=== PATIENT | male | born 1970 | race Caucasian/White ===

== ENCOUNTER 2017-01-16 17:26 | Emergency (ER) | payer MEDICAID ==
[2017-01-16] MEDS ORDERED: NORMAL SALINE 1,000 ML IV ONE (18:46)
[2017-01-16] MEDS ORDERED: HYDROmorphone HCL 1 MG/ML DISP.SYRIN IV ONE ×2 (18:46→19:24)
[2017-01-16] MEDS ORDERED: HYDROmorphone HCL 1 MG/ML DISP.SYRIN ONE ×2 (18:48→19:38)
[2017-01-16] MEDS ORDERED: ONDANSETRON HCL/PF 2 MG/ML VIAL ONE ×2 (18:50→20:08)
--- NOTE | 2017-01-16 18:51 | ERNOTE ---
Medical Problem HPI - General Chief Complaint: General Assessment Time Seen by Provider: 01/16/17 18:37 Source: patient Exam Limitations: no limitations - Immun/Allergies/Home Medications Immunizations: IMMUNIZATION HX Immunizations Up to Date Yes History of Influenza Vaccine Yes Hx Pneumococcal Vaccination Yes Allergies/Adverse Reactions: Allergies morphine Allergy (Severe, Verified 01/16/17 17:53) Anaphylaxis penicillin G Allergy (Severe, Verified 01/16/17 17:53) Anaphylaxis Home Medications: HOME MEDICATIONS Aspirin/Acetaminophen/Caffeine [Excedrin Extra Strength] 1 tab PO Q6H PRN [Last Taken Unknown] Metoprolol Tartrate [Lopressor] 100 mg PO BID 04/09/16 [Last Taken Unknown] oxyCODONE HCL/ACETAMINOPHEN [Percocet 5 MG/325 MG] 1 tab PO QID PRN #10 tablet 04/16/16 [Last Taken Unknown] LORazepam 1 mg PO DAILY 06/19/16 [Last Taken Unknown] Lisinopril 40 mg PO DAILY 06/19/16 [Last Taken Unknown] HYDROcodone/ACETAMINOPHEN [Hydrocodone-Apap 2.5 MG-108 MG/5 ML Solution] 10 ml PO Q4H PRN #200 udc 01/16/17 [Last Taken Unknown] traMADol HCL [Tramadol HCl] 50 mg PO DAILY 01/16/17 [Last Taken Unknown] - History of Present History Narrative: Patient has had a hyoid bone and tongue suspension by Dr Overton yesterday at [facility], was discharged this am at 11:00. Pain was controlled at that time but he had not been able to swallow anything. He took a nap and when he woke up around 16:00 his pain was out of control. He got a prescription for liquid dilaudid but it is not available at any pharmacy. At this point he is unable to swallow his saliva Review of Systems - Review of Systems Constitutional: Present: recent illness, malaise. Absent: fever ENT: Present: sore throat. Absent: ear pain, nose pain Respiratory: Absent: shortness of breath Cardiology: Absent: chest pain Gastrointestinal/Abdominal: Absent: vomiting, diarrhea, abdominal pain Genitourinary: Present: no symptoms reported Musculoskeletal: Absent: back pain Neurological: Present: headache. Absent: weakness, numbness - Patient's Past Medical History Patient History - Medical: Chronic Pain Patient History - Cardiac/Respiratory: Hypertension, Hyperlipidemia, Sleep Apnea Patient History - Cancer: No Hx of Cancer Patient History - Surgical Procedures: Appendectomy, Back Surgery, Other Patient History - Other: None - Social History Living Situations: home Abuse History: No History of abuse Psych History: No pertinent hx Does anyone smoke in the home?: No Smoking Status: Never smoker Alcohol Use: rarely Drug Use: none - Immunizations Immunizations Up to Date: Yes Hx Pneumococcal Vaccination: Yes History of Influenza Vaccine: Yes Physical Exam - Physical Exam General Appearance: Present: wd/wn, alert, moderate distress Head Exam: Present: other - scar under chin, no bleeding, no swelling,slightly tender Eye Exam: Normal inspection: bilateral, PERRL: bilateral Ears, Nose, Throat: Present: normal pharynx. Absent: pharyngeal erythema, pharyngeal swelling Neck: Present: normal inspection Respiratory: Present: no respiratory distress, normal breath sounds, no accessory muscle use, lungs clear Cardiovascular/Chest: Present: regular rate, rhythm, no murmur Neurological Exam: Present: alert, oriented, normal mood/affect Skin Exam: Present: normal color, warm/dry ED Progress - Vital Signs Patient's Vital Signs:: I have reviewed the patient's vital signs. Vital Signs: Vital Signs 01/16/17 17:41 Temperature 37.4 C Pulse Rate 123 H Respiratory 22 H Rate Blood Pressure 129/92 O2 Sat by Pulse 95 Oximetry - Progress/Reassessment Chief Complaint: General Assessment Progress Note-Subjective: 01/16/17 19:24 slightly better after dilaudid, pain still 5/10, attempted sip of cold water, not able to swallow 01/16/17 19:49 pain better after second dose of dilaudid, able to swallow few sips of water Departure - Departure Clinical Impression: Post-op pain Disposition: Home self-care Condition: Good Additional Instructions: make sure to take the pain medication every four hours and not let the pain get away from you, follow up with Dr Overton tomorrow as scheduled Referrals: Charlie Overton MD [[facility]esy Staff] - Prescriptions: HYDROcodone/ACETAMINOPHEN [Hydrocodone-Apap 2.5 MG-108 MG/5 ML Solution] 10 ml PO Q4H PRN #200 udc PRN Reason: Pain
[2017-01-16] MEDS ORDERED: ONDANSETRON HCL/PF 2 MG/ML VIAL IV ONE ×2 (18:56→20:07)
[2017-01-16 20:13] VITALS: BP 132/82
== END 2017-01-16 20:12 | disposition home or self-care (01) ==
LOC: ER 17:26
DX: G89.18 Other acute postprocedural pain (principal); I10 Essential (primary) hypertension
CPT/HCPCS: 96374; 96375; 99284; J2405

== ENCOUNTER 2017-01-17 09:27 | Emergency (ER) | payer MEDICAID ==
[2017-01-17 09:35] VITALS: BP 143/78
[2017-01-17] MEDS ORDERED: HYDROmorphone HCL 1 MG/ML DISP.SYRIN IM ONE (09:39)
[2017-01-17] MEDS ORDERED: HYDROmorphone HCL 1 MG/ML DISP.SYRIN ONE (09:41)
--- NOTE | 2017-01-17 09:42 | ERNOTE ---
ENT HPI Time Seen by Provider: 01/17/17 09:30 Source: patient Exam Limitations: no limitations - Immun/Allergies/Home Medications Immunizations: IMMUNIZATION HX Immunizations Up to Date Yes History of Influenza Vaccine Yes Hx Pneumococcal Vaccination Yes Allergies/Adverse Reactions: Allergies Allergy/AdvReac Type Severity Reaction Status Date / Time morphine Allergy Severe Anaphylaxis Verified 01/17/17 09:35 penicillin G Allergy Severe Anaphylaxis Verified 01/17/17 09:35 Home Medications: HOME MEDICATIONS Aspirin/Acetaminophen/Caffeine [Excedrin Extra Strength] 1 tab PO Q6H PRN [Last Taken Unknown] Metoprolol Tartrate [Lopressor] 100 mg PO BID 04/09/16 [Last Taken Unknown] oxyCODONE HCL/ACETAMINOPHEN [Percocet 5 MG/325 MG] 1 tab PO QID PRN #10 tablet 04/16/16 [Last Taken Unknown] LORazepam 1 mg PO DAILY 06/19/16 [Last Taken Unknown] Lisinopril 40 mg PO DAILY 06/19/16 [Last Taken Unknown] HYDROcodone/ACETAMINOPHEN [Hydrocodone-Apap 2.5 MG-108 MG/5 ML Solution] 10 ml PO Q4H PRN #200 udc 01/16/17 [Last Taken Unknown] traMADol HCL [Tramadol HCl] 50 mg PO DAILY 01/16/17 [Last Taken Unknown] - History of Present Illness Narrative: Patient had ENT surgery at [facility] two days ago (see note form yesterday). He was seen in the ER yesterday as his pain was not controlled as the liquid dilaudid that was prescribed was not available. He received IV fluids and pain medication, was able to swallow and was doing much better at discharge. He followed up with Dr Overton this morning, who was satisfied with his post op course. The patient did not take his pain medication with him and it has been over five hours since his last dose and the pain is getting worse again making it difficult to swallow, denies any other concerns Review of Systems - Review of Systems Constitutional: Present: recent illness. Absent: fever ENT: Present: sore throat. Absent: nose congestion, nasal drainage Respiratory: Absent: shortness of breath, cough Cardiology: Absent: chest pain Gastrointestinal/Abdominal: Absent: nausea, vomiting, diarrhea, abdominal pain Genitourinary: Present: no symptoms reported Musculoskeletal: Present: no symptoms reported Skin: Present: no symptoms reported Neurological: Present: no symptoms reported - Patient's Past Medical History Patient History - Medical: Chronic Pain Patient History - Cardiac/Respiratory: Hypertension, Hyperlipidemia, Sleep Apnea Patient History - Cancer: No Hx of Cancer Patient History - Surgical Procedures: Appendectomy, Back Surgery, Other Patient History - Other: None - Social History Living Situations: home Abuse History: No History of abuse Psych History: No pertinent hx Does anyone smoke in the home?: No Alcohol Use: rarely Drug Use: none - Immunizations Immunizations Up to Date: Yes Hx Pneumococcal Vaccination: Yes History of Influenza Vaccine: Yes Physical Exam - Physical Exam General Appearance: Present: wd/wn, alert, no apparent distress Head Exam: Present: other - well healing scar below chin, no bleeding, no ariway compromise Eye Exam: Normal inspection: bilateral Ears, Nose, Throat: Present: normal ENT inspection, normal pharynx Respiratory: Present: no respiratory distress, normal breath sounds, no accessory muscle use, lungs clear Cardiovascular/Chest: Present: regular rate, rhythm, no murmur Neurological Exam: Present: alert, oriented, normal mood/affect Skin Exam: Present: normal color, warm/dry ED Progress - Vital Signs Patient's Vital Signs:: I have reviewed the patient's vital signs. Vital Signs: Vital Signs 01/17/17 09:30 Temperature 37.1 C Pulse Rate 114 H Respiratory 12 Rate Blood Pressure 143/78 O2 Sat by Pulse 97 Oximetry - Progress/Reassessment Chief Complaint: Sore Throat Progress Note-Subjective: 01/17/17 09:[address] Overton, he did not send patient to ER, has no concern about post surgical course/healing, gave patient prescription for percocet. Patient needs to take his antibiotics Departure Clinical Impression: Post-op pain - Departure Disposition: Home self-care Condition: Good Additional Instructions: make sure to take your medication as scheduled and not let it get away from you, start taking your antibiotic after the pain medication has kicked in Referrals: Charlie Overton MD [[facility]] - (as scheduled)
== END 2017-01-17 09:48 | disposition home or self-care (01) ==
LOC: ER 09:27
DX: G89.18 Other acute postprocedural pain (principal); I10 Essential (primary) hypertension

== ENCOUNTER 2017-01-23 21:04 | Observation (INO) | payer MEDICAID ==
[2017-01-23] MEDS ORDERED: PROMETHAZINE HCL 25 MG in DEXTROSE 5 % IN WATER 50 ML IV ONE ×2 (21:16)
[2017-01-23] MEDS ORDERED: HYDROmorphone HCL 1 MG/ML DISP.SYRIN IV ONE ×2 (21:16→22:50)
[2017-01-23] MEDS ORDERED: NORMAL SALINE 1,000 ML IV ONE ×2 (21:16→23:13)
[2017-01-23] MEDS ORDERED: HYDROmorphone HCL 1 MG/ML DISP.SYRIN ONE ×2 (21:17→22:51)
--- NOTE | 2017-01-23 21:25 | ERNOTE ---
Medical Problem HPI - Narrative Date of Service: 01/23/17 - General Chief Complaint: General Assessment Time Seen by Provider: 01/23/17 21:10 Source: patient Exam Limitations: no limitations - Immun/Allergies/Home Medications Immunizations: IMMUNIZATION HX Immunizations Up to Date Yes History of Influenza Vaccine Yes Hx Pneumococcal Vaccination Yes Allergies/Adverse Reactions: Allergies morphine Allergy (Severe, Verified 01/23/17 21:11) Anaphylaxis penicillin G Allergy (Severe, Verified 01/23/17 21:11) Anaphylaxis Home Medications: HOME MEDICATIONS Metoprolol Tartrate [Lopressor] 100 mg PO BID 04/09/16 [Last Taken Unknown] LORazepam 1 mg PO DAILY 06/19/16 [Last Taken Unknown] Lisinopril 40 mg PO DAILY 06/19/16 [Last Taken Unknown] HYDROcodone/ACETAMINOPHEN [Hydrocodone-Apap 2.5 MG-108 MG/5 ML Solution] 10 ml PO Q4H PRN #200 udc 01/16/17 [Last Taken Unknown] traMADol HCL [Tramadol HCl] 50 mg PO DAILY 01/16/17 [Last Taken Unknown] Cephalexin Monohydrate [Keflex Suspension] 10 ml PO BID 01/23/17 [Last Taken Unknown] - History of Present History Narrative: Pt. comes in with c/o wound pain swelling, opening and drainage from surgical wound performed on the by Dr monson, Pt. had a tongue suspension and hyoid bone excision. Pt. was admitted at another hospital for incision infection and discharged 3 days ago but is still unable to swallow and has had intermittent fevers but has been taking his antibiotics. Pt. states that he is unable to manage his own secretions and his pain medications are not helping with the pain. Pt. states that pain is all over his skull. Review of Systems - Review of Systems Constitutional: Present: fever, chills, weakness, fatigue, malaise, weight loss EYE: Present: no symptoms reported ENT: Present: other - teeth and mandible pain unable to swallow Respiratory: Present: no symptoms reported. Absent: shortness of breath, cough , wheezing Cardiology: Present: no symptoms reported. Absent: chest pain, palpitations, edema Gastrointestinal/Abdominal: Present: no symptoms reported. Absent: nausea, vomiting, diarrhea Genitourinary: Present: no symptoms reported. Absent: frequency, pain, dysuria , decreased urinary output Musculoskeletal: Present: no symptoms reported. Absent: back pain, joint pain Skin: Present: other - incision dehiscence under chin Neurological: Present: no symptoms reported. Absent: anxiety, depressed, headache, dizziness/light-headedness, numbness, tingling Hematologic/Lymphatic: Present: no symptoms reported. Absent: easy bruising, easy bleeding All Other Systems: All systems neg except as marked - Patient's Past Medical History Patient History - Medical: Chronic Pain Patient History - Cardiac/Respiratory: Hypertension, Hyperlipidemia, Sleep Apnea Patient History - Cancer: No Hx of Cancer Patient History - Surgical Procedures: Appendectomy, Back Surgery, Other Patient History - Other: None - Social History Living Situations: home Abuse History: No History of abuse Psych History: No pertinent hx Does anyone smoke in the home?: No Smoking Status: Former smoker Alcohol Use: rarely Drug Use: none - Immunizations Immunizations Up to Date: Yes Hx Pneumococcal Vaccination: Yes History of Influenza Vaccine: Yes Physical Exam - Physical Exam General Appearance: Present: wd/wn, alert, no apparent distress Head Exam: Present: tenderness - on occiput and hyoid and mandible. Absent: no tenderness w palpation, active bleeding, contusions Eye Exam: Normal inspection: bilateral, PERRL: bilateral, EOMI: bilateral Ears, Nose, Throat: Present: dry mucous membranes, other - thrush on tongue. Absent: nasal congestion, sinus pain/drainage Neck: Present: other - tender frontal lateral and midline Respiratory: Present: no respiratory distress, normal breath sounds, no accessory muscle use, chest nontender, lungs clear Cardiovascular/Chest: Present: regular rate, rhythm, no murmur, normal peripheral pulses Gastrointestinal/Abdominal: Present: normal bowel sounds, nontender, nondistended, soft, no organomegaly Back Exam: Present: normal inspection Extremity Exam: Present: normal inspection Neurological Exam: Present: alert, oriented, normal mood/affect, no motor/ sensory deficits Skin Exam: Present: diaphoresis, pallor ED Progress - Results and Orders Patient's Lab Results:: I have reviewed the patient's lab results. - Vital Signs Patient's Vital Signs:: I have reviewed the patient's vital signs. Vital Signs: Vital Signs 01/23/17 21:07 Temperature 37.1 C Pulse Rate 126 H Respiratory 20 Rate Blood Pressure 144/91 O2 Sat by Pulse 99 Oximetry - CT/Ultrasound CT/Ultrasound Narrative: CT soft tissue neck without any bony abnormality but with enlarged lingual tonsil and Bilateral cervical adenopathy and diffuse subcutaneous stranding no focal fluid collection. Contrast was not discussed with CT techs for this study. - Progress/Reassessment Chief Complaint: General Assessment Progress:: Unchanged Departure - Departure Clinical Impression: Deep incisional surgical site infection Qualifiers: Encounter type: initial encounter Qualified Code(s): T81.4XXA - Infection following a procedure, initial encounter Dehiscence of external surgical wound Qualifiers: Encounter type: initial encounter Qualified Code(s): T81.31XA - Disruption of external operation (surgical) wound, not elsewhere classified, initial encounter Disposition: [facility] Condition: Fair
[2017-01-23 21:45] LABS: Hematocrit 47.6 % (42.0-52.0); Hemoglobin 16.9 gm/dL (13.5-18.0); Mean Cell Volume 89.8 fl (78-100); Mean Corpuscular Hemoglobin 31.9 pg (27-31); Mean Corpuscular Hgb Conc 35.5 g/dl (32-36); Mean Platelet Volume 10.2 fl (6.0-9.5); Neutrophil # 8.6 K/mm3 (1.3-6.0); Platelet Count 211 K/mm3 (150-450); Red Cell Distribution Width 11.9 % (11.5-14.0); White Blood Count 12.3 K/mm3 (4.0-10.5)
[2017-01-23 21:46] LABS: Anion Gap 18.4 mmol/L (6.8-13.8); BUN/Creatinine Ratio 21.4 (9.0-21.6); Bilirubin, Total 0.9 mg/dL (0.0-1.1); CRP 2.6 mg/dL (0.0-0.9); Ca. Corrected For Albumin 10.6 mg/dL (8.4-10.2); Calcium * 10.1 mg/dL (7.9-10.9); Potassium 3.4 mmol/L (3.4-4.6); Total Protein 8.4 gm/dL (6.2-8.2)
[2017-01-23] MEDS ORDERED: DEXAMETHASONE SOD PHOSPHATE 10 MG/ML VIAL ONE (23:13)
[2017-01-23] MEDS ORDERED: DEXAMETHASONE SOD PHOSPHATE 10 MG/ML VIAL IV SCH ×2 (23:15)
[2017-01-24] MEDS ORDERED: HYDROmorphone HCL 1 MG/ML DISP.SYRIN IV ONE (01:08)
[2017-01-24] MEDS: HYDROmorphone HCL 1 MG/ML DISP.SYRIN IV PRN ×2 (03:05→18:38)
--- NOTE | 2017-01-24 06:16 | HP ---
<Avila Caruso - Last Filed: 01/24/17 07:28> Chief Complaint - Chief Complaint Date of Service: 01/24/17 Time of Service: 01:50 Chief Complaint: post-op infection, swelling and pain History of Present Illness: 46 years old male adm to the hospital from ER with report of jaw pain, swelling at site of incision with drainage. Pt stated 01/15/17 he had a tongue suspension and hyoid bone excision secondary to obstructed sleep apnea. Surgery was performed by Dr monson in [place]. He was D/C home 01/17/17 with oral antibiotics and oxycodone for pain. Pt return to hospital due to pain, dehydration and fever. pt stated he was sent home with oral antibiotic, but because it was difficult for him to swallow he didn't take the pills. He was re -admitted at [facility] and discharge for pain control on Saturday. He was presented to the ER for pain control and incision care. Associated s/s fever, chills and excessive drainage from incision site.In ER he was initiated on Rocephin, ENT consulted and will see pt. - Patient's Past Medical History Patient History - Medical: Chronic Pain Patient History - Cardiac/Respiratory: Hypertension, Hyperlipidemia, Sleep Apnea Patient History - Cancer: No Hx of Cancer Patient History - Surgical Procedures: Appendectomy, Back Surgery, Other - cervical fusion Patient History - Other: None - Family History Mother Family History - Medical: Diabetes Type 1 Family History - Cancer: No pertinent family hx Father Family History - Medical: Diabetes Type 2 Family History - Cardiac/Respiratory: No pertinent hx Family History - Cancer: No pertinent family hx - Social History Living Situations: alone Abuse History: No History of abuse Psych History: Hx of Anxiety, Hx of Depression Does anyone smoke in the home?: No Smoking Status: Never smoker Have you smoked in the past 12 months: No Alcohol Use: rarely Drug Use: none - Immunizations Immunizations Up to Date: Yes Hx Pneumococcal Vaccination: Yes History of Influenza Vaccine: Yes Review Of Systems (GEN) - Review of Systems Generalized/Overall Review: Present: No Symptoms Reported EENTM: Present: Throat Pain Respiratory: Present: No Symptoms Reported Cardiac: Present: No Symptoms Reported Abdominal: Present: No Symptoms Reported Genitourinary: Present: No Symptoms Reported Musculoskeletal: Present: No Symptoms Reported Neurological: Present: No Symptoms Reported Skin: Present: Other - surgical site drainage Endocrine: Present: No Symptoms Reported Immunizations: IMMUNIZATION HX Immunizations Up to Date Yes History of Influenza Vaccine Yes Hx Pneumococcal Vaccination Yes Allergies/Adverse Reactions: Allergies Allergy/AdvReac Type Severity Reaction Status Date / Time morphine Allergy Severe Anaphylaxis Verified 01/23/17 21:11 penicillin G Allergy Severe Anaphylaxis Verified 01/23/17 21:11 Home Medications: HOME MEDICATIONS Metoprolol Tartrate [Lopressor] 100 mg PO BID 04/09/16 [Last Taken Unknown] HYDROcodone/ACETAMINOPHEN [Hydrocodone-Apap 2.5 MG-108 MG/5 ML Solution] 10 ml PO Q4H PRN #200 udc 01/16/17 [Last Taken Unknown] traMADol HCL [Tramadol HCl] 50 mg PO DAILY 01/16/17 [Last Taken Unknown] Cephalexin Monohydrate [Keflex Suspension] 10 ml PO BID 01/23/17 [Last Taken Unknown] LORazepam [Ativan] 1 mg PO DAILY PRN 01/24/17 [Last Taken Unknown] Lisinopril [Zestril] 40 mg PO DAILY 01/24/17 [Last Taken Unknown] Exam - Exam Vital Signs: Vital Signs - Last Taken Temp 36.8 C 01/24/17 03:43 Pulse 89 01/24/17 03:43 Resp 20 01/24/17 03:43 BP 133/83 01/24/17 03:43 Pulse Ox 97 01/24/17 03:43 Constitutional: Present: Alert, Oriented x3, Cooperative ENT Exam: Present: other Eye Exam: bilateral eye: normal inspection Neck: Present: full range of motion Back Exam: Present: normal inspection Breasts: Present: Exam deferred Respiratory: Present: chest non-tender Cardiovascular/Chest: Present: normal peripheral pulses, regular rate, rhythm Peripheral Pulses: dorsalis-pedis (R): 2+, dorsalis-pedis (L): 2+ Abdomen: Present: Normal bowel sounds, soft, nontender /Rectal: Present: Exam deferred Extremity: Present: normal range of motion Skin Exam: Present: normal color, warm/dry Neurologic: Present: oriented x 3 Appearance: Present: appropriate appearance Eye contact: Present: cooperative, good eye contact Thoughts: Present: normal thought pattern - s/p hyoid bone excision Diagnostic Studies: Laboratory Results WBC 12.3 K/mm3 (4.0-10.5) H 01/23/17 21:25 RBC 5.30 M/mm3 (4.7-6.0) 01/23/17 21: Hgb 16.9 gm/dL (13.5-18.0) 01/23/17 21: Hct 47.6 % (42.0-52.0) 01/23/17 21: MCV 89.8 fl (78-100) 01/23/17 21: MCH 31.9 pg (27-31) H 01/23/17 21: MCHC 35.5 g/dl (32-36) 01/23/17: RDW 11.9 % (11.5-14.0) 01/23/17: Plt Count 211 K/mm3 (150-450) 01/23/17 21: MPV 10.2 fl (6.0-9.5) H 01/23/17 21:25 Immature Gran % (Auto) 0.30 % (0.001-0.429) 01/23/17: Immature Gran # (Auto) 0.04 K/mm3 (0.000-0.0310) H 01/23/17 21:25 Neutrophils % 70.0 % (42-75.0) 01/23/17 21: Lymphocytes % 22.6 % (20-51) 01/23/17 21: Monocytes % 6.8 % (0.0-9) 01/23/17 21: Eosinophils % 0.2 % (0.0-3.0) 01/23/17: Basophils % 0.1 % (0.0-1.0) 01/23/17 21: Nucleated RBC % 0.0 k/mm3 (0-1) 01/23/17 21: Neutrophils # 8.6 K/mm3 (1.3-6.0) H 01/23/17 21: Lymphocytes # 2.8 k/mm3 (1.5-3.5) 01/23/17 21: Monocytes # 0.8 k/mm3 (0.0-1.0) 01/23/17: Eosinophils # 0.0 k/mm3 (0.0-0.7) 08/16/17 21:25 Absolute Basophils 0.0 k/mm3 (0.0-0.1) 01/23/17 21:25 ESR 43 mm/hr (0-10) H 01/23/17 21:25 Sodium 137 mmol/L (132-142) 01/23/17 21:25 Plasma Sodium 137 mmol/L (130-142) 01/23/17 21:25 Potassium 3.4 mmol/L (3.4-4.6) 01/23/17 21:25 Chloride 101 mmol/L (97-106) 01/23/17 21:25 Carbon Dioxide 21.0 mmol/L (24-32.6) L 01/23/17 21:25 Anion Gap 18.4 mmol/L (6.8-13.8) H 01/23/17 21:25 BUN 22 mg/dL (6-23) D 01/23/17 21:25 Creatinine 1.03 mg/dL (0.4-1.4) 01/23/17 21:25 Est GFR (Non-Af Amer) 83 mL/min (60-130) D 01/23/17 21:25 BUN/Creatinine Ratio 21.4 (9.0-21.6) 01/23/17 21:25 Random Glucose 113 mg/dL (70-110) H 01/23/17 21:25 Lactic Acid, Venous 1.1 mmol/L (0.4-1.9) 01/23/17 21:25 Calcium 10.1 mg/dL (7.9-10.9) 01/23/17 21:25 Calcium Adj for Albumin 10.6 mg/dL (8.4-10.2) H 01/23/17 21:25 Total Bilirubin 0.9 mg/dL (0.0-1.1) 01/23/17 21:25 AST 49 U/L (0-48) H 01/23/17 21:25 ALT 88 U/L (19-67) H 01/23/17 21:25 Alkaline Phosphatase 77 U/L (50-170) 01/23/17 21:25 C-Reactive Prot, Quant 2.6 mg/dL (0.0-0.9) H 01/23/17 21:25 Total Protein 8.4 gm/dL (6.2-8.2) H 01/23/17 21:25 Albumin 3.0 gm/dl (3.4-5.0) L 01/23/17 21:25 Assessment/Plan - Narrative Narrative: Incision site infection- S/P Hyoid bone excision 01/15/17 pt was non compliant with oral antibiotic upon discharge Continue with IV antibiotic and Dilaudid for pain control Change dressing as indicated ENT service following On adm WBC 12.3---->13.6, CRP 2.6, ESR 43 continue to monitor. Code status : Full DVT ppx: ambulate Time 30 minutes - Assessment/Plan (1) Deep incisional surgical site infection Problem: Acute QualifierTitle: Encounter type: initial encounter Qualified Code(s): T81.4XXA - Infection following a procedure, initial encounter <Rodolfo Morris - Last Filed: 01/24/17 08:39> Immunizations: IMMUNIZATION HX Immunizations Up to Date Yes History of Influenza Vaccine Yes Hx Pneumococcal Vaccination Yes Exam - Exam Vital Signs: Vital Signs - Last Taken Temp 36.1 C L 01/24/17 06:44 Pulse 87 01/24/17 06:44 Resp 20 01/24/17 06:44 BP 133/76 01/24/17 06:44 Pulse Ox 95 01/24/17 06:44 Diagnostic Studies: Abnormal Lab Results 01/24/17 01/24/17 Range/Units 06:25 06:25 WBC 13.6 H (4.0-10.5) K/mm3 MCH 32.2 H (27-31) pg MPV 10.2 H (6.0-9.5) fl Immature Gran # (Auto) 0.06 H (0.000-0.0310) K/mm3 Neutrophils % 91.6 H (42-75.0) % Lymphocytes % 5.8 L (20-51) % Neutrophils # 12.4 H (1.3-6.0) K/mm3 Lymphocytes # 0.8 L (1.5-3.5) k/mm3 Potassium 5.0 H D (3.4-4.6) mmol/L Random Glucose 123 H (70-110) mg/dL Calcium Adj for Albumin 10.8 H (8.4-10.2) mg/dL ALT 88 H (19-67) U/L Albumin 2.8 L (3.4-5.0) gm/dl Laboratory Results WBC 13.6 K/mm3 (4.0-10.5) H 01/24/17 06:25 RBC 5.09 M/mm3 (4.7-6.0) 01/24/17 06:25 Hgb 16.4 gm/dL (13.5-18.0) 01/24/17 06:25 Hct 47.3 % (42.0-52.0) 01/24/17 06:25 MCV 92.9 fl (78-100) 01/24/17 06:25 MCH 32.2 pg (27-31) H 01/24/17 06:25 MCHC 34.7 g/dl (32-36) 01/24/17 06:25 RDW 11.9 % (11.5-14.0) 01/24/17 06:25 Plt Count 212 K/mm3 (150-450) 01/24/17 06:25 MPV 10.2 fl (6.0-9.5) H 01/24/17 06:25 Immature Gran % (Auto) 0.40 % (0.001-0.429) 01/24/17 06:25 Immature Gran # (Auto) 0.06 K/mm3 (0.000-0.0310) H 01/24/17 06:25 Neutrophils % 91.6 % (42-75.0) H 01/24/17 06:25 Lymphocytes % 5.8 % (20-51) L 01/24/17 06:25 Monocytes % 2.1 % (0.0-9) 01/24/17 06:25 Eosinophils % 0.0 % (0.0-3.0) 01/24/17 06:25 Basophils % 0.1 % (0.0-1.0) 01/24/17 06:25 Nucleated RBC % 0.0 k/mm3 (0-1) 01/24/17 06:25 Neutrophils # 12.4 K/mm3 (1.3-6.0) H 01/24/17 06:25 Lymphocytes # 0.8 k/mm3 (1.5-3.5) L 01/24/17 06:25 Monocytes # 0.3 k/mm3 (0.0-1.0) 01/24/17 06:25 Eosinophils # 0.0 k/mm3 (0.0-0.7) 01/24/17 06:25 Absolute Basophils 0.0 k/mm3 (0.0-0.1) 01/24/17 06:25 ESR 43 mm/hr (0-10) H 01/23/17 21:25 Sodium 139 mmol/L (132-142) 01/24/17 06:25 Plasma Sodium 139 mmol/L (130-142) 01/24/17 06:25 Potassium 5.0 mmol/L (3.4-4.6) H D 01/24/17 06:25 Chloride 104 mmol/L (97-106) 01/24/17 06:25 Carbon Dioxide 27.2 mmol/L (24-32.6) 01/24/17 06:25 Anion Gap 12.8 mmol/L (6.8-13.8) 01/24/17 06:25 BUN 14 mg/dL (6-23) 01/24/17 06:25 Creatinine 0.91 mg/dL (0.4-1.4) 01/24/17 06:25 Est GFR (Non-Af Amer) 95 mL/min (60-130) 01/24/17 06:25 BUN/Creatinine Ratio 15.4 (9.0-21.6) 01/24/17 06:25 Random Glucose 123 mg/dL (70-110) H 01/24/17 06:25 Lactic Acid, Venous 1.1 mmol/L (0.4-1.9) 01/23/17 21:25 Calcium 10.2 mg/dL (7.9-10.9) 01/24/17 06:25 Calcium Adj for Albumin 10.8 mg/dL (8.4-10.2) H 01/24/17 06:25 Total Bilirubin 0.9 mg/dL (0.0-1.1) 01/24/17 06:25 AST 48 U/L (0-48) 01/24/17 06:25 ALT 88 U/L (19-67) H 01/24/17 06:25 Alkaline Phosphatase 81 U/L (50-170) 01/24/17 06:25 C-Reactive Prot, Quant 2.6 mg/dL (0.0-0.9) H 01/23/17 21:25 Total Protein 8.2 gm/dL (6.2-8.2) 01/24/17 06:25 Albumin 2.8 gm/dl (3.4-5.0) L 01/24/17 06:25 Assessment/Plan - Narrative Narrative: I have examined the patient, and agree with the plan, except after discussion with the surgeon, believe a change in antibiotics is appropriate. I directed all of our nurse practitioner hospitalist care for the patient.
[2017-01-24 06:28] LABS: Hematocrit 47.3 % (42.0-52.0); Hemoglobin 16.4 gm/dL (13.5-18.0); Mean Cell Volume 92.9 fl (78-100); Mean Corpuscular Hemoglobin 32.2 pg (27-31); Mean Corpuscular Hgb Conc 34.7 g/dl (32-36); Mean Platelet Volume 10.2 fl (6.0-9.5); Neutrophil # 12.4 K/mm3 (1.3-6.0); Neutrophil % 91.6 % (42-75.0); Platelet Count 212 K/mm3 (150-450); Red Blood Count 5.09 M/mm3 (4.7-6.0); Red Cell Distribution Width 11.9 % (11.5-14.0); White Blood Count 13.6 K/mm3 (4.0-10.5)
[2017-01-24 06:47] LABS: Albumin * 2.8 gm/dl (3.4-5.0); Anion Gap 12.8 mmol/L (6.8-13.8); BUN/Creatinine Ratio 15.4 (9.0-21.6); Bilirubin, Total 0.9 mg/dL (0.0-1.1); Ca. Corrected For Albumin 10.8 mg/dL (8.4-10.2); Calcium * 10.2 mg/dL (7.9-10.9); Carbon Dioxide 27.2 mmol/L (24-32.6); Total Protein 8.2 gm/dL (6.2-8.2)
[2017-01-24] MEDS ORDERED: oxyCODONE HCL 5 MG/5 ML UDC PO STA (07:25)
[2017-01-24] MEDS ORDERED: LORazepam 1 MG TABLET PO PRN (07:27)
[2017-01-24] MEDS: LEVOFLOXACIN 750 MG TABLET PO SCH ×2 (07:46→10:04)
[2017-01-24] MEDS ORDERED: LISINOPRIL 40 MG TABLET PO SCH (09:00)
[2017-01-24] MEDS: NYSTATIN 30 ML, diphenhydrAMINE HCL 75 MG, LIDOCAINE HCL 30 ML, MAG HYDROX/ALUMINUM HYD... PO SCH ×16 (09:38→21:09)
[2017-01-24] MEDS: METOPROLOL TARTRATE 100 MG TABLET PO SCH ×2 (09:40→21:09)
[2017-01-24] MEDS: DEXAMETHASONE SOD PHOSPHATE 4 MG/ML VIAL IV SCH ×2 (11:39→22:43)
[2017-01-24] MEDS: oxyCODONE HCL 5 MG/5 ML UDC PO PRN ×2 (15:52→21:14)
[2017-01-25] MEDS: oxyCODONE HCL 5 MG/5 ML UDC PO PRN ×2 (02:18→07:21)
[2017-01-25 06:17] LABS: Hematocrit 48.8 % (42.0-52.0); Hemoglobin 16.9 gm/dL (13.5-18.0); Mean Cell Volume 92.2 fl (78-100); Mean Corpuscular Hemoglobin 31.9 pg (27-31); Mean Corpuscular Hgb Conc 34.6 g/dl (32-36); Mean Platelet Volume 10.2 fl (6.0-9.5); Neutrophil # 9.8 K/mm3 (1.3-6.0); Neutrophil % 83.5 % (42-75.0); Platelet Count 248 K/mm3 (150-450); Red Blood Count 5.29 M/mm3 (4.7-6.0); Red Cell Distribution Width 11.9 % (11.5-14.0); White Blood Count 11.7 K/mm3 (4.0-10.5)
[2017-01-25 06:33] LABS: Anion Gap 17.1 mmol/L (6.8-13.8); BUN/Creatinine Ratio 17.8 (9.0-21.6); Calcium * 10.7 mg/dL (7.9-10.9); Carbon Dioxide 23.1 mmol/L (24-32.6); Estimated Creat Clear 82.5; Potassium 4.2 mmol/L (3.4-4.6)
[2017-01-25 06:41] VITALS: BP 101/55
--- NOTE | 2017-01-25 07:45 | DS ---
(1) Deep incisional surgical site infection Problem: Acute Qualifiers: Encounter type: subsequent encounter Qualified Code(s): T81.4XXD - Infection following a procedure, subsequent encounter (2) Dehiscence of external surgical wound Problem: Acute Qualifiers: Encounter type: subsequent encounter Qualified Code(s): T81.31XD - Disruption of external operation (surgical) wound, not elsewhere classified, subsequent encounter (3) Post-op pain Diagnosis(s): Uncontrolled Problem: Acute (4) Thrush, oral Problem: Acute Description of Stay: Wound opened and packed at bedside per Dr. Overton. Pain controlled in hospital. Multiple attempt failed as outpatient. Maintained as observation patient overnight to assure control. Antibiotics switched because of ongoing infection concern. Patient has now improved. Procedures Performed: see notes below - Opened wound and packed same per Dr. Chandler Discharge Disposition: Home self care Disposition: Home self-care Condition: Good Discharge Activity: Activity as tolerated [facility] Referrals: Eugenie Ferro, OPERATIONS GENERAL AGENT [Primary Care Provider] - Additional Patient Instructions (free text): Please make an appointment with Dr. Overton on discharge for Saturday morning in [place]. Eugenie Ferro next Saturday. Dressing changes and packing changes daily in [facility]. Prescriptions (Any new or edited meds): Levofloxacin [Levaquin] 750 mg PO DAILY@1100 #7 tablet Nystatin [Mycostatin 100 Mu/Ml Suspension] 30 ml PO QID #1200 ml oxyCODONE HCL [Roxicodone solution] 5 mg PO Q4H PRN #150 ml PRN Reason: Pain Complete Home Medications List: Complete Home Medication List: Metoprolol Tartrate [Lopressor] 100 mg PO BID 04/09/16 LORazepam [Ativan] 1 mg PO DAILY PRN 01/24/17 Lisinopril [Zestril] 40 mg PO DAILY 01/24/17 Levofloxacin [Levaquin] 750 mg PO DAILY@1100 #7 tablet 01/25/17 Nystatin [Mycostatin 100 Mu/Ml Suspension] 30 ml PO QID #1200 ml 01/25/17 oxyCODONE HCL [Roxicodone solution] 5 mg PO Q4H PRN #150 ml 01/25/17
== END 2017-01-25 10:14 | disposition home or self-care (01) ==
LOC: ER 21:04 → MS 22:57
PROVIDERS: ADMIT Nurse Practitioner; ATTEND Allergy & Immunology
DX: T81.4XXA Infection following a procedure, initial encounter (principal); T81.31XA Disruption of external operation (surgical) wound, not elsewhere classified, initial encounter; G89.18 Other acute postprocedural pain; I10 Essential (primary) hypertension; B37.0 Candidal stomatitis; G47.33 Obstructive sleep apnea (adult) (pediatric); E78.5 Hyperlipidemia, unspecified; L02.11 Cutaneous abscess of neck; Z68.37 Body mass index [BMI] 37.0-37.9, adult
CPT/HCPCS: 10180; 36415; 70490; 80048; 80053; 83605; 85025; 85652; 86140; 87040; 87070; 87077; 96365; 96367; 96375; 96376; 99285; G0378

== ENCOUNTER 2017-02-09 07:17 | Inpatient (IN) | payer MEDICAID ==
[2017-02-09] MEDS ORDERED: HYDROmorphone HCL 1 MG/ML DISP.SYRIN IV ONE ×2 (07:33→11:30)
[2017-02-09] MEDS ORDERED: LEVOFLOXACIN/D5W 750 MG/150 ML BAG IV ONE (07:33)
--- NOTE | 2017-02-09 07:41 | ERNOTE ---
<Billy Mcmanus - Last Filed: 02/09/17 07:36> Medical Problem HPI - Narrative Date of Service: 02/09/17 - General Chief Complaint: General Assessment Time Seen by Provider: 02/09/17 07:26 Source: patient, old records - Immun/Allergies/Home Medications Immunizations: IMMUNIZATION HX Immunizations Up to Date Yes History of Influenza Vaccine Yes Hx Pneumococcal Vaccination Yes Allergies/Adverse Reactions: Allergies morphine Allergy (Severe, Verified 02/09/17 07:23) Anaphylaxis penicillin G Allergy (Severe, Verified 02/09/17 07:23) Anaphylaxis Home Medications: HOME MEDICATIONS Metoprolol Tartrate [Lopressor] 100 mg PO BID 04/09/16 [Last Taken Unknown] Lisinopril [Zestril] 40 mg PO DAILY 01/24/17 [Last Taken Unknown] HYDROcodone/ACETAMINOPHEN [Hydrocodon-Acetamin 7.5-325/15] 15 ml PO 02/09/17 [ Last Taken Unknown] - History of Present History Narrative: This is a 47-year-old male who underwent a tongue hyoid surgery for obstructive sleep apnea by Dr. Monson 3 weeks ago. His postoperative course has been complicated. He had a episode of infection with that sounds like an abscess 2 weeks ago. He noted significant swelling in his neck as well as dehiscence of the wound and drainage of green material. The patient last saw Dr. Simmons on and was doing well. He ran out of his antibiotics on Saturday. He was on Levaquin. The surgeon had seen him and since he was no longer having symptoms it was felt to be safe to stop the antibiotics. The patient woke up this morning having a great deal of difficulty swallowing. He says that his pillow was covered in drool. He has a great deal of discomfort if he tries to swallow and says he is only able to swallow a tiny amount. He is not having any trouble breathing. He denies having fever. He says that he feels a significant amount of pressure in his cheeks up to his temporomandibular joint as well is the submandibular area. He says that the area there is quite hard. He says that this is new. He says it was not like this 24 hours ago. The patient denies any chest pain shortness of breath nausea vomiting diarrhea urinary symptoms gastrointestinal symptoms or any other complaints. His only symptoms involve the neck and swallowing. He denies any recent meat boluses which may have impacted this Review of Systems - Review of Systems Constitutional: Present: no symptoms reported EYE: Present: no symptoms reported ENT: Present: See HPI, sore throat, throat swelling Respiratory: Present: no symptoms reported Cardiology: Present: no symptoms reported Gastrointestinal/Abdominal: Present: no symptoms reported Genitourinary: Present: no symptoms reported Musculoskeletal: Present: no symptoms reported Skin: Present: no symptoms reported. Absent: rash Neurological: Present: no symptoms reported Endocrine: Present: no symptoms reported Hematologic/Lymphatic: Present: no symptoms reported, other - patient does not believe that these are swollen glands but he does have submandibular swelling Psych: Present: no symptoms reported All Other Systems: All systems neg except as marked - Patient's Past Medical History Patient History - Medical: Chronic Pain Patient History - Cardiac/Respiratory: Hypertension, Hyperlipidemia, Sleep Apnea Patient History - Cancer: No Hx of Cancer Patient History - Surgical Procedures: Appendectomy, Back Surgery, Other Patient History - Other: None - Family History Mother Family History - Medical: Diabetes Type 1 Family History - Cancer: No pertinent family hx Father Family History - Medical: Diabetes Type 2 Family History - Cardiac/Respiratory: No pertinent hx Family History - Cancer: No pertinent family hx - Social History Living Situations: alone Abuse History: No History of abuse Psych History: Hx of Anxiety, Hx of Depression Does anyone smoke in the home?: No Smoking Status: Never smoker Alcohol Use: rarely Drug Use: none - Immunizations Immunizations Up to Date: Yes Hx Pneumococcal Vaccination: Yes History of Influenza Vaccine: Yes Physical Exam - Physical Exam General Appearance: Present: wd/wn, alert, no apparent distress Head Exam: Present: normal inspection, no evidence of injury Eye Exam: Normal inspection: bilateral, PERRL: bilateral, EOMI: bilateral Ears, Nose, Throat: Present: other - the patient is unable to open his mouth completely due to discomfort in the neck. Unable to extend tongue out of mouth due to discomfort. Visualized portions of the oral pharynx are unremarkable. The uvula rises slightly to the right of the midline. The tonsillar pillars appear symmetric. The patient has significant swelling in the submandibular area to the angle of the jaw bilaterally. The patient has no definite fluctuance but induration of the skin and underlying tissue. Neck: Present: other - as described above in the ENT. Swelling noted. Well- healing wound. No definite calor or rubor. Respiratory: Present: no respiratory distress, normal breath sounds, no accessory muscle use, chest nontender, lungs clear Cardiovascular/Chest: Present: regular rate, rhythm, no murmur, normal peripheral pulses Gastrointestinal/Abdominal: Present: normal bowel sounds, nontender, nondistended, soft, no organomegaly Back Exam: Present: normal inspection, normal range of motion, no CVA tenderness , no vertebral tenderness Extremity Exam: Present: normal inspection, non-tender, no edema Neurological Exam: Present: alert, oriented, normal mood/affect, no motor/ sensory deficits Skin Exam: Present: normal color, warm/dry Lymphatic Exam: Present: no adenopathy ED Progress - Vital Signs Vital Signs: Vital Signs 02/09/17 07:20 Temperature 36.3 C L Pulse Rate 104 H Respiratory 14 Rate Blood Pressure 150/90 O2 Sat by Pulse 96 Oximetry - Progress/Reassessment Chief Complaint: General Assessment - Transfer of Care Physician Sign Out: Billy Mcmanus Brief History: 47-year-old gentleman with postoperative complications after hyoid surgery for obstructive sleep apnea. Had infection 2 weeks ago. I suspect infection has recurred. Has CAT scan pending. I have talked to the ENT physician. Antibiotics and pain medicines have been ordered. Receiving Physician: Prince Shah Pending Results: CT/MRI results, Labs, Pain-control, Physician/consult arrival Expected Disposition: Admit Departure - Departure Clinical Impression: Deep incisional surgical site infection Disposition: [facility] Condition: Serious Referrals: Eugenie Ferro, REFINING EQUIPMENT OPERATOR [Primary Care Provider] - <Ike Ross - Last Filed: 02/09/17 09:26> Medical Problem HPI - Immun/Allergies/Home Medications Immunizations: IMMUNIZATION HX Immunizations Up to Date Yes History of Influenza Vaccine Yes Hx Pneumococcal Vaccination Yes ED Progress - Results and Orders Patient's Lab Results:: I have reviewed the patient's lab results. - Vital Signs Patient's Vital Signs:: I have reviewed the patient's vital signs. Vital Signs: Vital Signs 02/09/17 02/09/17 07:20 09:09 Temperature 36.3 C L Pulse Rate 104 H 97 Respiratory 14 14 Rate Blood Pressure 150/90 163/74 O2 Sat by Pulse 96 97 Oximetry - CT/Ultrasound CT/Ultrasound Narrative: ct reveals 2-3 developing absceess below tonque - Progress/Reassessment Progress:: Unchanged Plan - Plan Plan: case dicussed with dr monson who will take patient to surgery this afternoon, dr butler contacted [facility] patient for admission
[2017-02-09] MEDS ORDERED: HYDROmorphone HCL 1 MG/ML DISP.SYRIN ONE (07:43)
[2017-02-09] MEDS ORDERED: NORMAL SALINE 1,000 ML IV PRN (07:55)
[2017-02-09 07:59] LABS: Hematocrit 42.8 % (42.0-52.0); Hemoglobin 15.2 gm/dL (13.5-18.0); Mean Cell Volume 90.3 fl (78-100); Mean Corpuscular Hemoglobin 32.1 pg (27-31); Mean Corpuscular Hgb Conc 35.5 g/dl (32-36); Mean Platelet Volume 10.3 fl (6.0-9.5); Neutrophil # 3.3 K/mm3 (1.3-6.0); Neutrophil % 53.7 % (42-75.0); Platelet Count 171 K/mm3 (150-450); Red Blood Count 4.74 M/mm3 (4.7-6.0); Red Cell Distribution Width 12.4 % (11.5-14.0); White Blood Count 6.2 K/mm3 (4.0-10.5)
[2017-02-09 08:07] LABS: Prothrombin Time (Patient) 9.6 Seconds (9.4-11.4)
[2017-02-09 08:10] LABS: Calcium * 9.2 mg/dL (7.9-10.9); Carbon Dioxide 24.6 mmol/L (24-32.6); Estimated Creat Clear 109.9; Potassium 3.6 mmol/L (3.4-4.6)
[2017-02-09 08:12] LABS: INR 0.92 INR (0.90-1.10)
[2017-02-09] MEDS ORDERED: DEXAMETHASONE SOD PHOSPHATE 10 MG/ML VIAL IV ONE (09:14)
[2017-02-09] MEDS ORDERED: DEXAMETHASONE SOD PHOSPHATE 10 MG/ML VIAL ONE ×2 (09:29→19:43)
[2017-02-09] MEDS ORDERED: CLINDAMYCIN PHOSPHATE 600 MG in DEXTROSE 5 % IN WATER 100 ML IV ONE ×2 (11:00)
--- NOTE | 2017-02-09 11:56 | HP ---
Chief Complaint - Chief Complaint Date of Service: 02/09/17 Time of Service: 11:42 Chief Complaint: Neck abscess History of Present Illness: Dirk is a 47 yo male that presents to the [facility] ER this Am with worsening neck swelling and pain. He underwent a hyoid and tongue base suspension surgery for obstructive sleep apnea by Dr. Overton 3 weeks ago. His postoperative course was complicated by development of an abscess 2 weeks ago. He had incision, drainage, and packing of abscess and treated with Levaquin. He awoke this AM with increased neck swelling and pain. He reports otherwise no other medical concerns. His past medical history is significant for obstructive sleep apnea and hypertension. He does not smoke and only drinks socially. He denies chest pain. Evaluation in the ER showed worsening swelling with development of 3 new abscesses. ENT was contacted and recommended steroids, IV antibiotics, and surgery for drainage today. - Patient's Past Medical History Patient History - Medical: Chronic Pain Patient History - Cardiac/Respiratory: Hypertension, Hyperlipidemia, Sleep Apnea Patient History - Cancer: No Hx of Cancer Patient History - Surgical Procedures: Appendectomy, Other - C3-4 Spinal Fusion ; Hyoid and Tongue base suspension for GRANT Patient History - Other: None - Family History Mother Family History - Medical: Diabetes Type 1 Family History - Cancer: No pertinent family hx Father Family History - Medical: Diabetes Type 2 Family History - Cardiac/Respiratory: No pertinent hx Family History - Cancer: No pertinent family hx - Social History Living Situations: home Abuse History: No History of abuse Psych History: Hx of Anxiety, Hx of Depression Does anyone smoke in the home?: No Smoking Status: Never smoker Have you smoked in the past 12 months: No Alcohol Use: rarely Drug Use: none - Immunizations Immunizations Up to Date: Yes Hx Pneumococcal Vaccination: Yes History of Influenza Vaccine: Yes Review Of Systems (GEN) - Review of Systems Generalized/Overall Review: Present: Chills. Absent: Weakness, Fever EENTM: Present: Throat Pain, Throat Swelling, Mouth Pain Respiratory: Present: No Symptoms Reported Cardiac: Present: No Symptoms Reported Abdominal: Present: Nausea. Absent: Vomiting Genitourinary: Present: No Symptoms Reported Musculoskeletal: Present: No Symptoms Reported Neurological: Present: No Symptoms Reported Skin: Present: No Symptoms Reported Endocrine: Present: No Symptoms Reported Allergies/Adverse Reactions: Allergies Allergy/AdvReac Type Severity Reaction Status Date / Time morphine Allergy Severe Anaphylaxis Verified 02/09/17 07:23 penicillin G Allergy Severe Anaphylaxis Verified 02/09/17 07:23 Home Medications: HOME MEDICATIONS Metoprolol Tartrate [Lopressor] 100 mg PO BID 04/09/16 [Last Taken Unknown] Lisinopril [Zestril] 40 mg PO DAILY 01/24/17 [Last Taken Unknown] HYDROcodone/ACETAMINOPHEN [Hydrocodon-Acetamin 7.5-325/15] 15 ml PO 02/09/17 [ Last Taken Unknown] Exam - Exam Vital Signs: Vital Signs - Last Taken Temp 36.4 C L 02/09/17 09:51 Pulse 98 02/09/17 09:51 Resp 16 02/09/17 09:51 BP 142/94 02/09/17 09:51 Pulse Ox 93 02/09/17 09:51 Constitutional: Present: Alert, Oriented x3, Cooperative, No distress ENT Exam: Present: hearing grossly normal, other - Neck diffusely swollen, moreso submental, tender to palpation. Able to talk and open mouth Eye Exam: bilateral eye: normal inspection Respiratory: Present: chest non-tender, lungs clear, normal breath sounds, no respiratory distress Cardiovascular/Chest: Present: regular rate, rhythm, no murmur Abdomen: Present: Normal bowel sounds, soft, nontender, nondistended, no rebound tenderness, no hepatospenomegaly Skin Exam: Present: normal color, warm/dry, no cyanosis, other - Packing removed , no active drainage Appearance: Present: appropriate appearance, appropriate insight Diagnostic Studies: Laboratory Results WBC 6.2 K/mm3 (4.0-10.5) 02/09/17 07:48 RBC 4.74 M/mm3 (4.7-6.0) 02/09/17 07:48 Hgb 15.2 gm/dL (13.5-18.0) 02/09/17 07:48 Hct 42.8 % (42.0-52.0) 02/09/17 07:48 MCV 90.3 fl (78-100) 02/09/17 07:48 MCH 32.1 pg (27-31) H 02/09/17 07:48 MCHC 35.5 g/dl (32-36) 02/09/17 07:48 RDW 12.4 % (11.5-14.0) 02/09/17 07:48 Plt Count 171 K/mm3 (150-450) 02/09/17 07:48 MPV 10.3 fl (6.0-9.5) H 02/09/17 07:48 Immature Gran % (Auto) 0.30 % (0.001-0.429) 02/09/17 07:48 Immature Gran # (Auto) 0.02 K/mm3 (0.000-0.0310) 02/09/17 07:48 Neutrophils % 53.7 % (42-75.0) 02/09/17 07:48 Lymphocytes % 35.3 % (20-51) 02/09/17 07:48 Monocytes % 8.2 % (0.0-9) 02/09/17 07:48 Eosinophils % 2.3 % (0.0-3.0) 02/09/17 07:48 Basophils % 0.2 % (0.0-1.0) 02/09/17 07:48 Nucleated RBC % 0.0 k/mm3 (0-1) 02/09/17 07:48 Neutrophils # 3.3 K/mm3 (1.3-6.0) 02/09/17 07:48 Lymphocytes # 2.2 k/mm3 (1.5-3.5) 02/09/17 07:48 Monocytes # 0.5 k/mm3 (0.0-1.0) 02/09/17 07:48 Eosinophils # 0.1 k/mm3 (0.0-0.7) 02/09/17 07:48 Absolute Basophils 0.0 k/mm3 (0.0-0.1) 02/09/17 07:48 PT 9.6 Seconds (9.4-11.4) 02/09/17 07:48 INR (Anticoag Therapy) 0.92 INR (0.90-1.10) 02/09/17 07:48 Sodium 139 mmol/L (132-142) 02/09/17 07:48 Plasma Sodium 139 mmol/L (130-142) 02/09/17 07:48 Potassium 3.6 mmol/L (3.4-4.6) 02/09/17 07:48 Chloride 103 mmol/L (97-106) 02/09/17 07:48 Carbon Dioxide 24.6 mmol/L (24-32.6) 02/09/17 07:48 Anion Gap 15.0 mmol/L (6.8-13.8) H 02/09/17 07:48 BUN 6 mg/dL (6-23) D 02/09/17 07:48 Creatinine 0.75 mg/dL (0.4-1.4) 02/09/17 07:48 Est GFR (Non-Af Amer) 119 mL/min (60-130) D 02/09/17 07:48 BUN/Creatinine Ratio 8.0 (9.0-21.6) L 02/09/17 07:48 Random Glucose 110 mg/dL (70-110) 02/09/17 07:48 Lactic Acid, Venous 1.3 mmol/L (0.4-1.9) 02/09/17 07:45 Calcium 9.2 mg/dL (7.9-10.9) 02/09/17 07:48 Assessment/Plan - Narrative Narrative: Dirk is a 47yo Male with: 1) Neck abscess and infection of postsurgical site following hyoid and tongue base suspension for obstructive sleep apnea. ENT was contacted from the ER. Will consult them for surgical drainage today. He will be continued on IV clindamycin, IV pain control, IV steroids, and IV nausea medication. He is medically cleared for surgery. Cardiovascular risk assessment is <0.4% risk for cardiac event with surgery. He is NPO and has not ate or drink since 1600 yesterday per his reports. 2) Hypertension - Controlled 3) Obstructive Sleep Apnea - Recently underwent hyoid and tongue base suspension for treatment. He reports improved sleep and snoring since surgery. 4) Medical Clearance - Cleared for surgery. - Assessment/Plan (1) Neck abscess Problem: Acute (2) Deep incisional surgical site infection Problem: Acute Qualifiers: (3) Hypertension Problem: Acute
[2017-02-09] MEDS: ONDANSETRON HCL/PF 2 MG/ML VIAL IV PRN ×2 (12:38→19:22)
[2017-02-09] MEDS: KETOROLAC TROMETHAMINE 30 MG/ML VIAL IV SCH ×2 (12:38→18:43)
[2017-02-09] MEDS: HYDROmorphone HCL 1 MG/ML DISP.SYRIN IV PRN ×4 (13:52→21:43)
[2017-02-09] MEDS ORDERED: BACITRACIN 50,000 UNITS VIAL IR ONE (15:25)
[2017-02-09] MEDS ORDERED: LIDOCAINE HCL/EPINEPHRINE 30 ML VIAL IJ ONE (15:25)
[2017-02-09] MEDS ORDERED: RINGER'S SOLUTION,LACTATED 1,000 ML IV ONE (17:00)
[2017-02-09] MEDS: LEVOFLOXACIN/D5W 750 MG/150 ML BAG IV SCH (19:22)
[2017-02-09] MEDS: DEXAMETHASONE SOD PHOSPHATE 10 MG/ML VIAL IV SCH (20:59)
[2017-02-09] MEDS: CLINDAMYCIN PHOSPHATE 900 MG in DEXTROSE 5 % IN WATER 100 ML IV SCH ×2 (20:59)
[2017-02-10] MEDS: KETOROLAC TROMETHAMINE 30 MG/ML VIAL IV SCH ×5 (00:15→23:05)
[2017-02-10] MEDS: HYDROmorphone HCL 1 MG/ML DISP.SYRIN IV PRN ×9 (00:23→23:04)
[2017-02-10] MEDS: CLINDAMYCIN PHOSPHATE 900 MG in DEXTROSE 5 % IN WATER 100 ML IV SCH ×6 (02:44→19:19)
[2017-02-10] MEDS: ONDANSETRON HCL/PF 2 MG/ML VIAL IV PRN ×5 (02:44→23:05)
[2017-02-10] MEDS ORDERED: DEXTROSE 5%-0.5 NORMAL SALINE 1,000 ML IV PRN (04:16)
[2017-02-10] MEDS: DEXAMETHASONE SOD PHOSPHATE 10 MG/ML VIAL IV SCH (07:51)
[2017-02-10] MEDS ORDERED: HYDROcodone/ACETAMINOPHEN 5 ML UDC PO PRN (09:52)
--- NOTE | 2017-02-10 09:56 | PN ---
Subjective - Date and Time Seen Date: 02/10/17 Time: 09:49 Subjective Narrative: Pt. feels better this am, less pain in teeth and feels less swollen. Still doesn't feel great, but is better. States received dose of decadron which he thinks caused him to flush and feel nauseated with vomiting. Otherwise no complaints. Objective - Review of Systems Generalized/Overall Review: Reports: Malaise. Denies: Chills, Fever EENTM: Reports: No Symptoms Reported Respiratory: Reports: No Symptoms Reported Cardiac: Reports: No Symptoms Reported Abdominal: Reports: Nausea, Vomiting Genitourinary Symptoms: Reports: No Symptoms Reported Musculoskeletal Complaints: Reports: No Symptoms Reported Neurological: Reports: No Symptoms Reported Skin: Reports: No Symptoms Reported Endocrine: Reports: No Symptoms Reported - Vitals Vitals: Last Vital Signs Temp 36.6 C 02/10/17 07:42 Pulse 98 02/10/17 07:42 Resp 18 02/10/17 07:42 BP 137/72 02/10/17 07:42 Pulse Ox 97 02/10/17 07:42 - Exam Constitutional: Present: Alert, Oriented x3, Cooperative, Mild distress, Obese ENT Exam: Present: hearing grossly normal Neck: Present: supple Respiratory: Present: lungs clear, normal breath sounds, no respiratory distress Cardiovascular/Chest: Present: regular rate, rhythm, no murmur Abdomen: Present: Normal bowel sounds, soft, nontender, nondistended Skin Exam: Present: normal color Lymphatic: Present: other - cervical LAD Neurologic: Present: normal mood/affect, oriented x 3 Appearance: Present: appropriate appearance, appropriate insight, neat Eye contact: Present: cooperative, good eye contact, normal speech Thoughts: Present: normal thought pattern, no apparent hallucination Assessment/Plan - Problems/Diagnosis (1) Deep incisional surgical site infection Problem: Acute Qualifiers: (2) Hypertension Problem: Chronic Qualifiers: Hypertension type: essential hypertension Qualified Code(s): I10 - Essential (primary) hypertension Narrative: will resume lisinopril and metoprolol, but monitor BP's. hold meds if SBP < 110 or HR < 50. (3) Neck abscess Problem: Acute Narrative: post op. appears to be better. continue abx IV for now. (4) Discharge planning issues Problem: Acute Narrative: hopefully can discharge home in the am on oral abx, but should wait until cultures are back in order to mario abx tx.
[2017-02-10] MEDS: METOPROLOL TARTRATE 100 MG TABLET PO SCH ×2 (10:27→20:00)
[2017-02-10] MEDS: LISINOPRIL 40 MG TABLET PO SCH (10:28)
[2017-02-10] MEDS: LEVOFLOXACIN/D5W 750 MG/150 ML BAG IV SCH (17:30)
[2017-02-10] MEDS ORDERED: SENNOSIDES/DOCUSATE SODIUM 1 TAB TABLET PO SCH ×2 (18:30→21:00)
[2017-02-11] MEDS: CLINDAMYCIN PHOSPHATE 900 MG in DEXTROSE 5 % IN WATER 100 ML IV SCH ×2 (02:53)
[2017-02-11] MEDS: HYDROmorphone HCL 1 MG/ML DISP.SYRIN IV PRN (02:53)
[2017-02-11] MEDS: KETOROLAC TROMETHAMINE 30 MG/ML VIAL IV SCH (05:22)
[2017-02-11 06:46] VITALS: BP 104/57
[2017-02-11] MEDS ORDERED: LEVOFLOXACIN 750 MG TABLET PO SCH (07:40)
[2017-02-11] MEDS: LISINOPRIL 40 MG TABLET PO SCH (08:17)
[2017-02-11] MEDS: METOPROLOL TARTRATE 100 MG TABLET PO SCH (08:17)
--- NOTE | 2017-02-11 09:14 | DS ---
(1) Deep incisional surgical site infection Problem: Acute Qualifiers: (2) Hypertension Problem: Chronic Qualifiers: Hypertension type: essential hypertension Qualified Code(s): I10 - Essential (primary) hypertension (3) Neck abscess Problem: Acute (4) Discharge planning issues Problem: Acute Description of Stay: pt. admitted and placed on IV abx for wound infection and abscesses. Pt. taken to OR by Dr. Overton who debrided the wound and drained the abscess. Drains were in place, though one came out and was removed by me prior to discharge. Pt. was doing well, felt much better and asked to go home understanding that cultures were not back yet and that his abx tx may need to be changed from the levaquin he'll be discharged on. Procedures Performed: see notes below List Procedures: I&D, debridement of wound and drains placed. See op note for more specific details. Discharge Disposition: Home self care Disposition: Home self-care Condition: Fair Discharge Activity: Activity as tolerated Discharge Diet: [facility] soft Referrals: Eugenie Ferro CNP [Primary Care Provider] - One Week Charlie Overton MD [Courtesy Staff] - (per him) Prescriptions (Any new or edited meds): Clindamycin HCl [Cleocin HCl] 600 mg PO TID #48 capsule HYDROcodone/ACETAMINOPHEN [Hydrocodon-Acetamin 7.5-325/15] 7.5 ml PO Q6H PRN # 300 solution PRN Reason: Pain Levofloxacin [Levaquin] 750 mg PO DAILY@1100 #8 tablet Complete Home Medications List: Complete Home Medication List: Metoprolol Tartrate [Lopressor] 100 mg PO BID 04/09/16 Lisinopril [Zestril] 40 mg PO DAILY 01/24/17 Clindamycin HCl [Cleocin HCl] 600 mg PO TID #48 capsule 02/11/17 HYDROcodone/ACETAMINOPHEN [Hydrocodon-Acetamin 7.5-325/15] 7.5 ml PO Q6H PRN # 300 solution 02/11/17 Levofloxacin [Levaquin] 750 mg PO DAILY@1100 #8 tablet 02/11/17 Sennosides/Docusate Sodium [Senokot-S] 2 tab PO HS tablet 02/11/17
== END 2017-02-11 10:00 | disposition home or self-care (01) | DRG 863 ==
LOC: ER 07:17 → MS 09:25
PROVIDERS: ADMIT Family Medicine; ATTEND Family Medicine
PROC: 0J9400Z Drainage of Right Neck Subcutaneous Tissue and Fascia with Drainage Device, Open Approach (ICD-10-PCS; principal; 2017-02-09 17:00)
DX: T81.4XXA Infection following a procedure, initial encounter (principal); L02.11 Cutaneous abscess of neck; Y83.9 Surgical procedure, unspecified as the cause of abnormal reaction of the patient, or of later complication, without mention of misadventure at the time of the procedure; I10 Essential (primary) hypertension; E78.5 Hyperlipidemia, unspecified
CPT/HCPCS: 21501; 36415; 70491; 80048; 83605; 85025; 85610; 87040; 87070; 87077; 96365; 96375; 99285; J2405

== ENCOUNTER 2017-02-25 10:34 | Emergency (ER) | payer MEDICAID ==
[2017-02-25] MEDS ORDERED: ONDANSETRON 4 MG TAB.RAPDIS PO ONE (10:50)
[2017-02-25] MEDS ORDERED: ONDANSETRON 4 MG TAB.RAPDIS ONE (10:52)
[2017-02-25] MEDS ORDERED: HYDROmorphone HCL 1 MG/ML DISP.SYRIN IV ONE ×2 (11:11→12:11)
--- NOTE | 2017-02-25 11:11 | ERNOTE ---
Integumentary HPI - Narrative Date of Service: 02/25/17 - General Presenting Symptoms: abscess Time Seen by Provider: 02/25/17 11:01 Source: patient, RN notes reviewed, old records Exam Limitations: no limitations - Immun/Allergies/Home Medications Immunizations: IMMUNIZATION HX Immunizations Up to Date Yes History of Influenza Vaccine Yes Hx Pneumococcal Vaccination No Allergies/Adverse Reactions: Allergies Allergy/AdvReac Type Severity Reaction Status Date / Time morphine Allergy Severe Anaphylaxis Verified 02/25/17 10:50 penicillin G Allergy Severe Anaphylaxis Verified 02/25/17 10:50 Home Medications: HOME MEDICATIONS Metoprolol Tartrate [Lopressor] 100 mg PO BID 04/09/16 [Last Taken Unknown] Lisinopril [Zestril] 40 mg PO DAILY 01/24/17 [Last Taken Unknown] Clindamycin HCl [Cleocin HCl] 600 mg PO TID #48 capsule 02/11/17 [Last Taken Unknown] HYDROcodone/ACETAMINOPHEN [Hydrocodon-Acetamin 7.5-325/15] 7.5 ml PO Q6H PRN # 300 solution 02/11/17 [Last Taken Unknown] Levofloxacin [Levaquin] 750 mg PO DAILY@1100 #8 tablet 02/11/17 [Last Taken Unknown] Sennosides/Docusate Sodium [Senokot-S] 2 tab PO HS tablet 02/11/17 [Last Taken Unknown] - History of Present Illness Narrative: 47 y/o male presents to the ED for a neck abscess. He underwent a sleep apnea surgery approximately 6 weeks ago. He was admitted here for an incisional abscess on 02/09. The abscess was surgically debrided by Dr. Overton. The patient was discharged on 02/11. He went home on Levaquin, which he has finished, and clindamycin that he is still taking. He was also packing the wound daily until today when he could not do so d/t pain. Two days ago, he began having increased pain and swelling around the incision on his anterior neck. This has continued to worsen, and today a large amount of purulent drainage came out of the wound. He also reports that he began vomiting last night, and that he developed a rash on his trunk and arms 2 days ago. He reports pain and pressure in his lower teeth and jaw, and feeling like he is unable to swallow his own saliva. He is noted to be swallowing and not having to spit out his secretions. Date (Duration): 02/23/17 Location: Reports: neck Quality: Reports: painful Severity: severe Prior Treatment: Reports: recently seen, treated by physician, recently hospitalized, currently on antibiotics Review of Systems - Review of Systems Constitutional: Present: recent illness, chills, malaise EYE: Present: no symptoms reported ENT: Present: ear pain, throat swelling. Absent: nose congestion, sore throat Respiratory: Present: shortness of breath. Absent: cough Cardiology: Absent: chest pain, syncope Gastrointestinal/Abdominal: Present: nausea, vomiting. Absent: abdominal pain Genitourinary: Present: no symptoms reported Musculoskeletal: Present: neck pain. Absent: joint pain Skin: Present: rash, lesions, lumps Neurological: Present: headache. Absent: dizziness/light-headedness Endocrine: Present: no symptoms reported Hematologic/Lymphatic: Absent: easy bruising, easy bleeding Psych: Present: no symptoms reported - Patient's Past Medical History Patient History - Medical: Chronic Pain Patient History - Cardiac/Respiratory: Hypertension, Hyperlipidemia, Sleep Apnea Patient History - Cancer: No Hx of Cancer Patient History - Surgical Procedures: Appendectomy, Other, ENT Patient History - Other: None - Family History Mother Family History - Medical: Diabetes Type 1 Family History - Cancer: No pertinent family hx Father Family History - Medical: Diabetes Type 2 Family History - Cardiac/Respiratory: No pertinent hx Family History - Cancer: No pertinent family hx - Social History Living Situations: other Abuse History: No History of abuse Psych History: Hx of Anxiety, Hx of Depression Does anyone smoke in the home?: No Smoking Status: Never smoker Have you smoked in the past 12 months: No Do you dip or chew tobacco: No Alcohol Use: rarely Drug Use: none - Immunizations Immunizations Up to Date: Yes Hx Pneumococcal Vaccination: No History of Influenza Vaccine: Yes Physical Exam - Physical Exam General Appearance: Present: alert, moderate distress, obese Head Exam: Present: normal inspection Eye Exam: Normal inspection: bilateral Ears, Nose, Throat: Absent: pharyngeal erythema, pharyngeal swelling, dry mucous membranes Neck: Present: limited range of motion, other - Severe tenderness, swelling and induration surrounding upper anterior neck incision Respiratory: Present: no respiratory distress, normal breath sounds, no accessory muscle use, lungs clear Cardiovascular/Chest: Present: no murmur, normal peripheral pulses, tachycardia Extremity Exam: Present: normal range of motion, no edema Neurological Exam: Present: alert, oriented, normal mood/affect, no motor/ sensory deficits Skin Exam: Present: warm/dry, skin rash - papular eruption with some pustules, mild on chest, abdomen and arms, severe on back, other - face flushed ED Progress - Results and Orders Patient's Lab Results:: I have reviewed the patient's lab results. - Vital Signs Patient's Vital Signs:: I have reviewed the patient's vital signs. Vital Signs: Vital Signs 02/25/17 10:44 Temperature 36.7 C Pulse Rate 113 H Respiratory 20 Rate Blood Pressure 142/104 O2 Sat by Pulse 98 Oximetry - CT/Ultrasound CT/Ultrasound Narrative: CT Soft tissue neck: IMPRESSION: 1. Questionable sublingual small phlegmon versus early abscess as discussed above. 2. Slightly open/diastatic appearance of the submandibular wound without additional fluid collection. 3. Stable likely reactive lymph node enlargement of the submental/ submandibular regions and right jugular digastric region. 4. 2 mm calcification in the anterior left floor of the mouth, which could potentially represent a left submandibular sialolith. 5. Additional comments and details are as above. Electronically signed by Preston Cardozo M.D.. - Progress/Reassessment Chief Complaint: Abscess Progress:: Improved Plan - Plan Plan: Pain has improved with Dilaudid. Nausea did not improve with Zofran but did resolve with Reglan. Lab results remarkable for a normal WBC with a left shift, normal lactic acid, normal CRP but a ESR of 49. CT showed a possible phlegmon vs. early abscess. Discussed results with Dr. Overton. He requests that the patient be transferred to [facility] so that he can assess him there. Transfer accepted by Dr. Morgan in the ED. Patient in agreement with plan. Departure Clinical Impression: Deep incisional surgical site infection Qualifiers: Encounter type: sequela Qualified Code(s): T81.4XXS - Infection following a procedure, sequela - Departure Disposition: [facility] Condition: Stable Referrals: Charlie Overton MD [Courtesy Staff] -
[2017-02-25] MEDS ORDERED: HYDROmorphone HCL 1 MG/ML DISP.SYRIN ONE ×2 (11:13→12:18)
[2017-02-25 11:16] LABS: Hematocrit 40.9 % (42.0-52.0); Hemoglobin 14.4 gm/dL (13.5-18.0); Mean Cell Volume 90.7 fl (78-100); Mean Corpuscular Hemoglobin 31.9 pg (27-31); Mean Corpuscular Hgb Conc 35.2 g/dl (32-36); Mean Platelet Volume 9.9 fl (6.0-9.5); Neutrophil # 6.3 K/mm3 (1.3-6.0); Neutrophil % 76.1 % (42-75.0); Platelet Count 189 K/mm3 (150-450); Red Blood Count 4.51 M/mm3 (4.7-6.0); Red Cell Distribution Width 12.3 % (11.5-14.0); White Blood Count 8.2 K/mm3 (4.0-10.5)
[2017-02-25] MEDS: NORMAL SALINE 1,000 ML IV SCH ×2 (11:26→13:22)
[2017-02-25 11:28] LABS: Anion Gap 13.8 mmol/L (6.8-13.8); Bilirubin, Total 0.3 mg/dL (0.0-1.1); CRP 0.4 mg/dL (0.0-0.9); Ca. Corrected For Albumin 9.7 mg/dL (8.4-10.2); Calcium * 9.2 mg/dL (7.9-10.9); Potassium 3.8 mmol/L (3.4-4.6); Total Protein 8.1 gm/dL (6.2-8.2)
[2017-02-25] MEDS ORDERED: METOCLOPRAMIDE HCL 5 MG/ML VIAL IV ONE (12:11)
[2017-02-25] MEDS ORDERED: METOCLOPRAMIDE HCL 5 MG/ML VIAL ONE (12:18)
[2017-02-25] MEDS ORDERED: diphenhydrAMINE HCL 50 MG/ML VIAL ONE (13:17)
[2017-02-25] MEDS ORDERED: diphenhydrAMINE HCL 50 MG/ML VIAL IV ONE (13:19)
[2017-02-25 13:44] VITALS: BP 137/77
== END 2017-02-25 14:20 | disposition short-term general hospital (02) ==
LOC: ER 10:34
DX: T81.4XXA Infection following a procedure, initial encounter (principal); R53.81 Other malaise

== ENCOUNTER 2017-03-11 15:23 | Emergency (ER) | payer MEDICAID ==
[2017-03-11] MEDS ORDERED: ASPIRIN 81 MG TAB.CHEW PO ONE (16:02)
[2017-03-11] MEDS ORDERED: ASPIRIN 81 MG TAB.CHEW ONE (16:05)
[2017-03-11] MEDS ORDERED: ONDANSETRON HCL/PF 2 MG/ML VIAL ONE (16:14)
[2017-03-11] MEDS ORDERED: ONDANSETRON HCL/PF 2 MG/ML VIAL IV ONE (16:16)
--- NOTE | 2017-03-11 16:16 | ERNOTE ---
Chest Pain/Cardiac HPI Date of Service: 03/11/17 Chief Complaint: Chest Pain Time Seen by Provider: 03/11/17 15:52 Source: patient Exam Limitations: no limitations Immunizations: IMMUNIZATION HX Immunizations Up to Date Yes History of Influenza Vaccine No Hx Pneumococcal Vaccination No Allergies/Adverse Reactions: Allergies penicillin G Allergy (Severe, Verified 02/25/17 10:50) Anaphylaxis morphine Adverse Reaction (Severe, Verified 03/11/17 16:27) Shortness of Breath Home Medications: HOME MEDICATIONS Metoprolol Tartrate [Lopressor] 100 mg PO BID 04/09/16 [Last Taken Unknown] Lisinopril [Zestril] 40 mg PO DAILY 01/24/17 [Last Taken Unknown] Clindamycin HCl [Cleocin HCl] 600 mg PO TID #48 capsule 02/11/17 [Last Taken Unknown] HYDROcodone/ACETAMINOPHEN [Hydrocodon-Acetamin 7.5-325/15] 7.5 ml PO Q6H PRN # 300 solution 02/11/17 [Last Taken Unknown] Levofloxacin [Levaquin] 750 mg PO DAILY@1100 #8 tablet 02/11/17 [Last Taken Unknown] Sennosides/Docusate Sodium [Senokot-S] 2 tab PO HS tablet 02/11/17 [Last Taken Unknown] Narrative: 47-year-old male presents to the emergency room for chest pressure that started this morning on his way to work. Patient states that he is also having pain in his teeth and that he feels the abscess underneath his chin has grown since he has stopped antibiotics. Patient states he is having a hard time swallowing his saliva and he also has redeveloped the rash that he had previously back in February. During her conversation patient did drool 2 times. his speech does sound muffled at times. Date (Duration): 03/11/17 Timing: getting worse Severity/Quality: moderate Location: other - across chest pressure Chest Pain Radiation: no radiation Activities at Onset: none Nitro Today/Relief: no nitro taken today Aspirin Treatment Today: 325 mg x 1, provided by ED Associated Symptoms: Present: fever/chills Prior Chest Pain/Cardiac Workup: Reports: no prior cardiac workup Review of Systems - Narrative Narrative: patient has a PMH of abscess under his chin in the soft tissue, just recently completed 10 days of IV ABX - Review of Systems Constitutional: Present: See HPI EYE: Present: no symptoms reported ENT: Present: See HPI Respiratory: Present: no symptoms reported. Absent: shortness of breath Cardiology: Present: no symptoms reported Gastrointestinal/Abdominal: Present: no symptoms reported Genitourinary: Present: no symptoms reported Musculoskeletal: Present: no symptoms reported Skin: Present: See HPI, rash Neurological: Present: no symptoms reported Endocrine: Present: no symptoms reported Hematologic/Lymphatic: Present: no symptoms reported Psych: Present: no symptoms reported All Other Systems: All systems neg except as marked - Patient's Past Medical History Patient History - Medical: Chronic Pain Patient History - Cardiac/Respiratory: Hypertension, Hyperlipidemia, Sleep Apnea Patient History - Cancer: No Hx of Cancer Patient History - Surgical Procedures: Appendectomy, Other, ENT Patient History - Other: None - Family History Mother Family History - Medical: Diabetes Type 1 Family History - Cancer: No pertinent family hx Father Family History - Medical: Diabetes Type 2 Family History - Cardiac/Respiratory: No pertinent hx Family History - Cancer: No pertinent family hx - Social History Living Situations: home Abuse History: No History of abuse Psych History: Hx of Anxiety, Hx of Depression Does anyone smoke in the home?: No Smoking Status: Never smoker Alcohol Use: rarely Drug Use: none - Immunizations Immunizations Up to Date: Yes Hx Pneumococcal Vaccination: No History of Influenza Vaccine: No Physical Exam - Physical Exam Narrative: rash to arms and chest on patient he states it is the same rash he had last time. rash is red individual circular/ papules. chest tenderness noted upon palpation. patient appears anxious.Patient is able to reproduce chest pain when shrugging shoulders or leaning back. General Appearance: Present: wd/wn, alert, anxious Head Exam: Present: normal inspection, no evidence of injury Eye Exam: Normal inspection: bilateral, PERRL: bilateral, EOMI: bilateral Ears, Nose, Throat: Present: normal except - ED Progress - Results and Orders Patient's Lab Results:: I have reviewed the patient's lab results. - Vital Signs Vital Signs: Vital Signs 03/11/17 15:27 Temperature 37.1 C Pulse Rate 111 H Respiratory 16 Rate Blood Pressure 194/67 O2 Sat by Pulse 95 Oximetry - Progress/Reassessment Chief Complaint: Chest Pain Progress:: Unchanged Plan - Plan Plan: Spoke with Dr Overton regarding patients current situation, lab work, imaging and why he came to the ER. Dr Overton states he is very fimiliar with patient and that the patient can see him in the AM in the office. he feels that patient is recovering and is safe to go home. While relaying this information to patient he nolonger had a change in his voice and no drooling. Patient states he will see Dr Overton in the AM. Departure Clinical Impression: Post-op pain - Departure Disposition: Home Follow Up Needed Condition: Stable Additional Instructions: Continue any previous home medications. Follow-up with Dr. Overton in the morning. Return to the emergency room if symptoms return or persist or your able to swallow. Referrals: Charlie Overton MD [Courtesy Staff] -
[2017-03-11 16:20] LABS: Hematocrit 43.1 % (42.0-52.0); Hemoglobin 14.9 gm/dL (13.5-18.0); Mean Cell Volume 91.9 fl (78-100); Mean Corpuscular Hemoglobin 31.8 pg (27-31); Mean Corpuscular Hgb Conc 34.6 g/dl (32-36); Mean Platelet Volume 10.4 fl (6.0-9.5); Neutrophil # 5.5 K/mm3 (1.3-6.0); Neutrophil % 69.1 % (42-75.0); Platelet Count 185 K/mm3 (150-450); Red Blood Count 4.69 M/mm3 (4.7-6.0); Red Cell Distribution Width 12.9 % (11.5-14.0)
[2017-03-11 16:30] LABS: Prothrombin Time (Patient) 10.2 Seconds (9.4-11.4)
[2017-03-11 16:31] LABS: INR 0.98 INR (0.90-1.10); Partial Thrombolplastin Time 25.3 Seconds (24-32)
[2017-03-11 16:44] LABS: ALT 89 U/L (19-67); AST 49 U/L (0-48); Albumin * 3.2 gm/dl (3.4-5.0); Alkaline Phosphatase * 147 U/L (50-170); Anion Gap 13.1 mmol/L (6.8-13.8); BNP * 21 pg/mL (5-140); Bilirubin, Total 0.4 mg/dL (0.0-1.1); Blood Urea Nitrogen 9 mg/dL (6-23); Ca. Corrected For Albumin 9.6 mg/dL (8.4-10.2); Calcium * 9.3 mg/dL (7.9-10.9); Carbon Dioxide 28.7 mmol/L (24-32.6); Chloride 103 mmol/L (97-106); Glucose * 108 mg/dL (70-110); Potassium 3.8 mmol/L (3.4-4.6); Sodium 141 mmol/L (132-142); Total Protein 8.6 gm/dL (6.2-8.2); Troponin I Less than 0.017 ng/ml (0.00-0.10)
[2017-03-11 18:06] VITALS: BP 137/81
== END 2017-03-11 18:15 | disposition home or self-care (01) ==
LOC: ER 15:23
DX: G89.18 Other acute postprocedural pain (principal)
CPT/HCPCS: 36415; 70491; 71020; 80053; 83605; 83880; 84484; 85025; 85610; 85652; 85730; 93005; 96372; 99284; J2405

== ENCOUNTER 2017-03-22 21:02 | Emergency (ER) | payer MEDICAID ==
[2017-03-22] MEDS ORDERED: ONDANSETRON HCL/PF 2 MG/ML VIAL ONE (21:24)
[2017-03-22] MEDS ORDERED: ONDANSETRON HCL/PF 2 MG/ML VIAL IV ONE (21:26)
--- NOTE | 2017-03-22 21:54 | ERNOTE ---
ENT HPI Presenting Symptoms: other Time Seen by Provider: 03/22/17 21:52 Source: patient, RN notes reviewed, old records - Immun/Allergies/Home Medications Immunizations: IMMUNIZATION HX Immunizations Up to Date Yes History of Influenza Vaccine No Hx Pneumococcal Vaccination No Allergies/Adverse Reactions: Allergies Allergy/AdvReac Type Severity Reaction Status Date / Time penicillin G Allergy Severe Anaphylaxis Verified 03/22/17 21:14 morphine AdvReac Severe Shortness Verified 03/22/17 21:14 of Breath Home Medications: HOME MEDICATIONS Metoprolol Tartrate [Lopressor] 100 mg PO BID 04/09/16 [Last Taken Unknown] Lisinopril [Zestril] 40 mg PO DAILY 01/24/17 [Last Taken Unknown] Levofloxacin [Levaquin] 750 mg PO DAILY@1100 #8 tablet 02/11/17 [Last Taken Unknown] oxyCODONE HCL/ACETAMINOPHEN [Oxycodone-Acetaminophn 5-325/5] 5 ml PO PRN PRN [Last Taken Unknown] Cephalexin Monohydrate [Keflex] 1,000 mg PO BID #40 cap 03/23/17 [Last Taken Unknown] Clindamycin HCl 150 mg PO TID #30 capsule 03/23/17 [Last Taken Unknown] Ondansetron [Zofran Odt] 4 mg PO Q6H PRN #20 tab 03/23/17 [Last Taken Unknown] Ranitidine HCl [Zantac] 150 mg PO BID #30 tablet 03/23/17 [Last Taken Unknown] - History of Present Illness Narrative: Patient had surgery in January for his hyoid, getting a suspension. He has had a lot of trouble ever since, and been here and sent to [facility] for further treatment. He felt his skin under his jaw feeling full again, tonight he brushed his hand against his under jaw, and felt blood. He states that the incision opened up a little, and he got a lot of blood out of the swelling under his chin. He had a CT scan in the last few weeks, nothing was found. He has been on many antibiotics, is now on Levaquin, which he feels isn't helping at all. He is back to work some, but still dealing with the drainage that happens periodically. He notes that when the swelling gets worse his teeth hurt. He states that Dr. Simmons states that his swelling is scar tissue. Severity: Present: moderate ENT Location: Present: other - skin under chin Modifying Factors - Improves: Reports: antibiotics - Rocephin Modifying Factors - Worsens: Reports: activity Associated Symptoms - ENT: Reports: malaise, tooth pain, jaw swelling. Denies: fever Prior Treament: Reports: recently seen, treated by physician Review of Systems - Review of Systems Constitutional: Present: weakness, fatigue, malaise EYE: Absent: eye pain ENT: Present: sore throat, other - dental pain lower teeth, particularly the front lower teeth. Absent: ear pain Respiratory: Absent: shortness of breath, cough Cardiology: Absent: chest pain, palpitations Gastrointestinal/Abdominal: Absent: nausea, vomiting, diarrhea, abdominal pain Genitourinary: Present: no symptoms reported Musculoskeletal: Present: other - pain anterior neck. Absent: back pain, muscle pain Skin: Present: no symptoms reported Neurological: Present: depressed Endocrine: Present: no symptoms reported Hematologic/Lymphatic: Present: no symptoms reported Psych: Present: no symptoms reported - Patient's Past Medical History Patient History - Medical: Chronic Pain Patient History - Cardiac/Respiratory: Hypertension, Hyperlipidemia, Sleep Apnea Patient History - Cancer: No Hx of Cancer Patient History - Surgical Procedures: Appendectomy, Other, ENT Patient History - Other: None - Family History Mother Family History - Medical: Diabetes Type 1 Family History - Cancer: No pertinent family hx Father Family History - Medical: Diabetes Type 2 Family History - Cardiac/Respiratory: No pertinent hx Family History - Cancer: No pertinent family hx - Social History Living Situations: home Abuse History: No History of abuse Psych History: Hx of Anxiety, Hx of Depression Smoking Status: Never smoker Alcohol Use: occasionally Drug Use: none - Immunizations Immunizations Up to Date: Yes Hx Pneumococcal Vaccination: No History of Influenza Vaccine: No Physical Exam - Physical Exam General Appearance: Present: wd/wn, alert, mild distress, lethargic, obese Head Exam: Present: swelling - under chin, tenderness - under chin, other - swelling and tenderness under his chin, surgical scar with small opening, has had reddish discharge Eye Exam: Normal inspection: bilateral, PERRL: bilateral, EOMI: bilateral Ears, Nose, Throat: Present: normal ENT inspection, normal pharynx Neck: Present: normal inspection, nontender Respiratory: Present: no respiratory distress, normal breath sounds, no accessory muscle use, chest nontender, lungs clear Cardiovascular/Chest: Present: regular rate, rhythm, no murmur Gastrointestinal/Abdominal: Present: normal bowel sounds, nontender, nondistended, soft Back Exam: Present: normal inspection, normal range of motion Extremity Exam: Present: normal inspection, non-tender, normal range of motion, no edema Neurological Exam: Present: alert, oriented, normal mood/affect, no motor/ sensory deficits Skin Exam: Present: normal color, warm/dry Lymphatic Exam: Present: no adenopathy ED Progress - Results and Orders Patient's Lab Results:: I have reviewed the patient's lab results. Results and Orders: Laboratory Tests 03/22/17 03/22/17 03/22/17 23:30 23:45 23:45 WBC 6.4 RBC 4.61 L Hgb 14.9 Hct 42.3 MCV 91.8 MCH 32.3 H MCHC 35.2 RDW 13.0 Plt Count 180 MPV 9.9 H Immature Gran % (Auto) 0.30 Immature Gran # (Auto) 0.02 Neutrophils % 61.1 Lymphocytes % 29.1 Monocytes % 7.2 Eosinophils % 2.0 Basophils % 0.3 Nucleated RBC % 0.0 Neutrophils # 3.9 Lymphocytes # 1.9 Monocytes # 0.5 Eosinophils # 0.1 Absolute Basophils 0.0 ESR 34 H Sodium 141 Plasma Sodium 141 Potassium 3.7 Chloride 103 Carbon Dioxide 26.4 Anion Gap 15.3 H BUN 8 Creatinine 0.70 Est GFR (Non-Af Amer) 128 BUN/Creatinine Ratio 11.4 Random Glucose 96 Calcium 9.0 Calcium Adj for Albumin 9.5 Total Bilirubin 0.3 AST 57 H ALT 83 H Alkaline Phosphatase 117 Total Protein 8.1 Albumin 3.0 L - Vital Signs Patient's Vital Signs:: I have reviewed the patient's vital signs. Vital Signs: Vital Signs 03/22/17 21:06 Temperature 36.9 C Pulse Rate 119 H Respiratory 18 Rate Blood Pressure 135/92 O2 Sat by Pulse 96 Oximetry - Progress/Reassessment Chief Complaint: Dental Problem Progress:: Improved Progress Note-Subjective: 03/23/17 02:19 Rocephin 1 gram IV, Clindamycin 300 mg PO Departure Clinical Impression: Deep incisional surgical site infection Qualifiers: Encounter type: subsequent encounter Qualified Code(s): T81.4XXD - Infection following a procedure, subsequent encounter - Departure Disposition: Home self-care Condition: Good Instructions: Cellulitis, Adult, [id number], Abscess, [id number] Additional Instructions: Stop the Levaquin Referrals: Eugenie Ferro, MEHUL [Primary Care Provider] - (3-5 days) Prescriptions: Cephalexin Monohydrate [Keflex] 1,000 mg PO BID #40 cap Clindamycin HCl 150 mg PO TID #30 capsule Ondansetron [Zofran Odt] 4 mg PO Q6H PRN #20 tab PRN Reason: Nausea And Vomiting Ranitidine HCl [Zantac] 150 mg PO BID #30 tablet
[2017-03-22] MEDS ORDERED: HYDROmorphone HCL 1 MG/ML DISP.SYRIN IV ONE (22:22)
[2017-03-22] MEDS ORDERED: HYDROmorphone HCL 1 MG/ML DISP.SYRIN ONE ×2 (22:25→23:39)
[2017-03-22] MEDS ORDERED: HYDROmorphone HCL 2 MG/ML VIAL IV ONE (23:39)
[2017-03-22] MEDS ORDERED: HYDROmorphone HCL 2 MG/ML VIAL ONE (23:40)
[2017-03-22 23:45] LABS: Hematocrit 42.3 % (42.0-52.0); Hemoglobin 14.9 gm/dL (13.5-18.0); Mean Cell Volume 91.8 fl (78-100); Mean Corpuscular Hemoglobin 32.3 pg (27-31); Mean Corpuscular Hgb Conc 35.2 g/dl (32-36); Mean Platelet Volume 9.9 fl (6.0-9.5); Neutrophil # 3.9 K/mm3 (1.3-6.0); Neutrophil % 61.1 % (42-75.0); Platelet Count 180 K/mm3 (150-450); Red Blood Count 4.61 M/mm3 (4.7-6.0); White Blood Count 6.4 K/mm3 (4.0-10.5)
[2017-03-22 23:59] LABS: Anion Gap 15.3 mmol/L (6.8-13.8); BUN/Creatinine Ratio 11.4 (9.0-21.6); Bilirubin, Total 0.3 mg/dL (0.0-1.1); Ca. Corrected For Albumin 9.5 mg/dL (8.4-10.2); Carbon Dioxide 26.4 mmol/L (24-32.6); Potassium 3.7 mmol/L (3.4-4.6); Total Protein 8.1 gm/dL (6.2-8.2)
[2017-03-23] MEDS ORDERED: CLINDAMYCIN HCL 150 MG CAPSULE PO ONE (02:22)
[2017-03-23] MEDS ORDERED: ONDANSETRON HCL/PF 2 MG/ML VIAL ONE (02:30)
[2017-03-23] MEDS ORDERED: ONDANSETRON HCL/PF 2 MG/ML VIAL IV ONE (02:32)
[2017-03-23 04:59] VITALS: BP 107/77
== END 2017-03-23 05:14 | disposition home or self-care (01) ==
LOC: ER 21:02
DX: G89.29 Other chronic pain (principal); I10 Essential (primary) hypertension; E78.5 Hyperlipidemia, unspecified
CPT/HCPCS: 36415; 80053; 85025; 85652; 87040; 96365; 96375; 99284; J2405

== ENCOUNTER 2017-06-05 08:42 | Emergency (ER) | payer MEDICAID ==
[2017-06-05 09:19] LABS: Hematocrit 49.1 % (42.0-52.0); Hemoglobin 17.1 gm/dL (13.5-18.0); Mean Cell Volume 92.3 fl (78-100); Mean Corpuscular Hemoglobin 32.1 pg (27-31); Mean Corpuscular Hgb Conc 34.8 g/dl (32-36); Mean Platelet Volume 9.9 fl (6.0-9.5); Neutrophil # 4.2 K/mm3 (1.3-6.0); Neutrophil % 67.6 % (42-75.0); Platelet Count 154 K/mm3 (150-450); Red Blood Count 5.32 M/mm3 (4.7-6.0); White Blood Count 6.2 K/mm3 (4.0-10.5)
--- NOTE | 2017-06-05 09:20 | ERNOTE ---
Back Pain ER HPI Date of Service: 06/05/17 Presenting Symptoms: injury/pain to back, hx chronic back pain Time Seen by Provider: 06/05/17 09:17 Source: patient Exam Limitations: no limitations Immunizations: IMMUNIZATION HX Immunizations Up to Date Yes History of Influenza Vaccine Yes Hx Pneumococcal Vaccination Yes Allergies/Adverse Reactions: Allergies penicillin G Allergy (Severe, Verified 06/05/17 08:54) Anaphylaxis morphine Adverse Reaction (Severe, Verified 06/05/17 08:54) Shortness of Breath Home Medications: HOME MEDICATIONS Metoprolol Tartrate [Lopressor] 100 mg PO BID 04/09/16 [Last Taken Unknown] Lisinopril [Zestril] 40 mg PO DAILY 01/24/17 [Last Taken Unknown] Ondansetron [Zofran Odt] 4 mg PO Q6H PRN #20 tab 03/23/17 [Last Taken Unknown] Ranitidine HCl [Zantac] 150 mg PO BID #30 tablet 03/23/17 [Last Taken Unknown] Cyclobenzaprine HCl [Flexeril] 10 mg PO TID PRN #30 tab 06/05/17 [Last Taken Unknown] Ketorolac Tromethamine [Toradol] 10 mg PO Q6H PRN #20 tab 06/05/17 [Last Taken Unknown] oxyCODONE HCL/ACETAMINOPHEN [Percocet 7.5-325 mg Tablet] 1 each PO 3XW 5 Days # 15 tablet 06/05/17 [Last Taken Unknown] Narrative: PMH, PSH, meds, labs and allergies reviewed. Patient states he had acute jerking near fall onto right side of his low back, states injured right side no fall unto buttock Date (Duration): 06/03/17 Timing: Reports: getting worse Quality/Severity: Reports: severe Location of pain: Reports: lower back - right sided Activities at Onset: Reports: activity - slept poorly due to muscular spasms. Possible Precipitating Factor: Reports: fall/near fall, trauma - jerking and wrenched back Modifying Factors - (Improves): Reports: other - usually muscle relaxers and pain meds Modifying Factors - (Worsens): Reports: movement to right Associated Symptoms: Reports: difficulty walking - this pain has been well controlled x 4 mo Within within 20 minutes 22 is 1 hours because I don't stop evidenced fresh chart also [facility] Review of Systems - Narrative Narrative: Establish a known patient with chronic lumbar degenerative changes his MRI was reviewed he usually does. Lumbar steroid injections for his chronic degenerative disc disease. He states that he had been without any narcotic pain medication for approximately 4 months it's been drinking fairly well and then had this acute episode. Anemia falling and holding on nearly findings and subsequent holding onto the railing procedure to the right is last 4 he was holding and now he had severe muscle spasms in his back and worsening low back pain. He rated his pain 9 out of 10. - Review of Systems Constitutional: Present: no symptoms reported EYE: Present: no symptoms reported ENT: Present: no symptoms reported Respiratory: Present: no symptoms reported Cardiology: Present: no symptoms reported Gastrointestinal/Abdominal: Present: no symptoms reported Genitourinary: Present: no symptoms reported Musculoskeletal: Present: See HPI, back pain Skin: Present: See HPI Neurological: Present: no symptoms reported. Absent: pre-existing deficit Endocrine: Present: no symptoms reported Hematologic/Lymphatic: Present: no symptoms reported Psych: Present: no symptoms reported - Narrative Narrative: Past medical history past surgical history, allergies, medications, immunizations family history and social history were reviewed. - Patient's Past Medical History Patient History - Medical: Chronic Pain Patient History - Cardiac/Respiratory: Hypertension, Hyperlipidemia, Sleep Apnea Patient History - Cancer: No Hx of Cancer Patient History - Surgical Procedures: Appendectomy, Other, ENT Patient History - Other: None - Family History Mother Family History - Medical: Diabetes Type 1 Family History - Cancer: No pertinent family hx Father Family History - Medical: Diabetes Type 2 Family History - Cardiac/Respiratory: No pertinent hx Family History - Cancer: No pertinent family hx - Social History Living Situations: other Abuse History: No History of abuse Psych History: Hx of Anxiety, Hx of Depression Smoking Status: Never smoker Have you smoked in the past 12 months: No Do you dip or chew tobacco: No Alcohol Use: occasionally Drug Use: none - Immunizations Immunizations Up to Date: Yes Hx Pneumococcal Vaccination: Yes History of Influenza Vaccine: Yes Physical Exam - Physical Exam Narrative: states pain is level 5/10, usually tolerable but had no medications in about 4 months and needs to return to pain management, gets percocet and flexeril usually works for pain. General Appearance: Present: wd/wn, alert, mild distress Eye Exam: Normal inspection: bilateral, PERRL: bilateral, EOMI: bilateral Ears, Nose, Throat: Present: normal ENT inspection Neck: Present: normal inspection, nontender, other - has a wound under chin that was examined and drilled holes mild serousy drainage, this was cleaned no prurulent discharge Respiratory: Present: no respiratory distress, normal breath sounds Cardiovascular/Chest: Present: regular rate, rhythm, no murmur, normal peripheral pulses Peripheral Pulses: N=norm/S=strong/W=weak/B=bound/A=absent: Carotid (R): Normal , Carotid (L): Normal, Radial (R): Normal, Radial (L): Normal Gastrointestinal/Abdominal: Present: normal bowel sounds, nontender, nondistended, soft, no organomegaly Rectal Exam: Present: deferred Male Genitals Exam: Present: deferred Back Exam: Present: normal inspection, CVA tenderness (R), muscle spasm - right eye right side O the lumbar area noted for spasms. Extremity Exam: Present: normal inspection, non-tender, normal range of motion Neurological Exam: Present: alert, oriented, normal mood/affect. Absent: motor weakness DTR: N=norm/NB=norm/brisk/A=abs/DD=dull/dimin/HC=hyperactive: Bicep (R): Normal , Bicep (L): Normal, Tricep (R): Normal, Tricep (L): Normal Skin Exam: Present: normal color, warm/dry Lymphatic Exam: Present: no adenopathy ED Progress - Date and Time Seen: Date and Time: 06/05/17 09:37 labs and prior back MRI reviewed. 06/05/17 10:52 Patient stable for discharge. Pain improved post toradol injection - Results and Orders Patient's Lab Results:: I have reviewed the patient's lab results. Results and Orders: Laboratory Tests 06/05/17 09:08 WBC 6.2 RBC 5.32 Hgb 17.1 Hct 49.1 MCV 92.3 MCH 32.1 H MCHC 34.8 RDW 12.0 Plt Count 154 MPV 9.9 H Immature Gran % (Auto) 0.30 Immature Gran # (Auto) 0.02 Neutrophils % 67.6 Lymphocytes % 21.3 Monocytes % 9.4 H Eosinophils % 1.1 Basophils % 0.3 Nucleated RBC % 0.0 Neutrophils # 4.2 Lymphocytes # 1.3 L Monocytes # 0.6 Eosinophils # 0.1 Absolute Basophils 0.0 - Vital Signs Patient's Vital Signs:: I have reviewed the patient's vital signs. Vital Signs: Vital Signs 06/05/17 08:46 Temperature 36.6 C Pulse Rate 110 H Respiratory 16 Rate Blood Pressure 151/97 O2 Sat by Pulse 93 Oximetry - EKG EKG read: Reviewed by me - none to review. - X-Ray X-Ray #1 Interpretation: Reviewed by me X-ray Comments: Old mri from 2013 reivewed by me today to determine need for further xrays. MRI Lumbar W/O Contrast * Date Scheduled: 09-16-2013 07:15 AM Study Priority: Requesting Service: Requesting Physician: Sundar Smith Reason for Exam: Radiological Report : [place] [address] NAME: PUNEET REGAN : 1970 MR #: [id number] CC: LOC: RAD X-RAY REPORT [id number] MRI/MRI Lumbar W/O Contrast * Exam Date: 09/16/13 Ordering Doctor: Sundar Smith HISTORY: SPINAL STENOSIS. RIGHT-SIDED SCIATICA. TECHNIQUE: Multiple non-contrast MRI images of the lumbar spine were obtained. COMPARISON: Radiographs of the lumbar spine from [facility] dated 09/07/13 and previous MRI from 08/04/12 is available. MRI OF LUMBAR SPINE WITHOUT CONTRAST: Image #1 of series #5 will be designated as the T12 level. Conus medullaris is normal, terminating at the T12-L1 level. T12-L1 level demonstrates mild disc desiccation without significant spinal stenosis. L1-2 level is unremarkable. L2-3 level demonstrates disc desiccation and mild disc height loss without significant disc bulge or spinal stenosis. L3-4 level demonstrates mild disc desiccation with mild disc height loss without significant disc bulge or spinal stenosis. L4-5 level demonstrates disc desiccation and mild to moderate disc height loss with a central disc bulge noted, which remains stable. No significant spinal canal narrowing. L5-S1 level demonstrates disc desiccation and mild disc height loss. There is a slight right foraminal disc bulge present, which does not appear to significantly encroach into the neural foramen, stable. Marrow signal is unremarkable and without focal marrow-replacing lesion. Visualized portions of the abdomen are grossly unremarkable. IMPRESSION: OVERALL, NO SIGNIFICANT INTERVAL CHANGE HAS BEEN SEEN WITH MULTIPLE LEVELS OF DISC DISEASE DISCUSSED ABOVE. OVERALL, I DO NOT SEE ANY SIGNIFICANT PROGRESSION OR SIGNIFICANT SPINAL STENOSIS OR DISC HERNIATION ON THESE IMAGES. Preston Cardozo MD Dict: 09/16/13 0940 Typed: 09/16/13 1213/ALT <Electronically signed by Preston Cardozo MD> 09/18/13 0859 [ rep ct labl] [ rep ct name suf] [ rep ct add1] [ rep ct add2] [ rep ct city], [ rep ct state] [ rep ct zip] Approved by: PRESTON CARDOZO Approval Date: 09-16-2013 Approval Time: 12:13 PM THIS REPORT WAS RECEIVED FROM THE [employer] [facility] - Progress/Reassessment Chief Complaint: Back Pain Progress:: Re-examined - Transfer of Care Expected Disposition: Discharge Plan - Plan Plan: Patient is stable for discharge pain level is now down to 4-5 /10 from a prior level of 9 / 10. Patient sitting comfortly. incision under his chin is stable and no drainage is noted, I cleansed the wound with betadine and looked again there is no prurulent drainage. Departure Clinical Impression: Degenerative disc disease, lumbar - Departure Disposition: Home self-care Condition: Good Instructions: Sciatica, [id number] Referrals: Eugenie Ferro, MEHUL [Primary Care Provider] - 06/11/17 Prescriptions: Cyclobenzaprine HCl [Flexeril] 10 mg PO TID PRN #30 tab PRN Reason: MUSCLE SPASMS Ketorolac Tromethamine [Toradol] 10 mg PO Q6H PRN #20 tab PRN Reason: Pain oxyCODONE HCL/ACETAMINOPHEN [Percocet 7.5-325 mg Tablet] 1 each PO 3XW 5 Days # 15 tablet
[2017-06-05] MEDS ORDERED: KETOROLAC TROMETHAMINE 30 MG/ML VIAL IM ONE (09:45)
[2017-06-05] MEDS ORDERED: KETOROLAC TROMETHAMINE 30 MG/ML VIAL ONE (09:48)
[2017-06-05 10:39] VITALS: BP 143/102
== END 2017-06-05 11:06 | disposition home or self-care (01) ==
LOC: ER 08:42
DX: M51.36 Other intervertebral disc degeneration, lumbar region (principal); G89.29 Other chronic pain; I10 Essential (primary) hypertension; E78.5 Hyperlipidemia, unspecified

== ENCOUNTER 2020-05-15 20:18 | Inpatient (IN) ==
--- NOTE | 2020-05-15 21:00 | ERNOTE ---
Dyspnea - General Presenting Symptoms: shortness of breath Time Seen by Provider: 05/15/20 20:50 Source: patient Exam Limitations: no limitations - Immun/Allergies/Home Medications Immunizations: IMMUNIZATION HX Immunizations Up to Date Yes History of Influenza Vaccine No Hx Pneumococcal Vaccination No Allergies/Adverse Reactions: Allergies morphine Adverse Reaction (Severe, Verified 05/15/20 20:34) Anaphylaxis Home Medications: HOME MEDICATIONS Lisinopril [Zestril] 40 mg PO HS 10/11/17 [Last Taken 01/13/19] Metoprolol Succinate [Toprol Xl] 100 mg PO HS 10/11/17 [Last Taken 01/13/19] cyclobenzaprine 10 mg tablet 10 mg PO TID PRN #60 tab 02/10/20 [Last Taken Unknown] diclofenac sodium 75 mg tablet,delayed release 75 mg PO BID 02/10/20 [Last Taken Unknown] tizanidine 4 mg capsule 4 mg PO TID PRN #60 cap 02/10/20 [Last Taken Unknown] hydroxyzine pamoate 25 mg capsule 25 mg PO QID PRN #60 cap 02/22/20 [Last Taken Unknown] albuterol sulfate 90 mcg/actuation aerosol inhaler 1 inh IH QID PRN #6.7 g 05/12/20 [Last Taken Unknown] azithromycin 250 mg tablet See Rx Instructions PO .COMPLEX #6 tab 05/12/20 [Last Taken Unknown] cefdinir 300 mg capsule 300 mg PO BID #10 cap 05/12/20 [Last Taken Unknown] dexamethasone 6 mg tablet 6 mg PO DAILY #10 tab 05/12/20 [Last Taken Unknown] - History of Present Illness Narrative: Patient states that he was diagnosed with Covid over 2 weeks ago and has been doing fairly well. He saw Dr. Lindquist last week and was prescribed antibiotics for what he thinks was pneumonia. He states that he thought he was feeling better and over the past couple of days he got more and more short of breath. He presents febrile and tachypneic Severity: moderate Treatment DIRECTOR INPATIENT HEADACHE PROGRAM: by patient, albuterol Initiating event: Reports: upper resp illness - / COVID Modifying Factors - (Improves): Reports: albuterol Modifying Factors (Worsens): Reports: activity Associated Symptoms-Dyspnea: Reports: fever/chills Prior Treatment: Reports: recently seen, treated by physician Review of Systems - Review of Systems Constitutional: Present: recent illness, fever, chills EYE: Absent: vision changes ENT: Present: nose congestion, nasal drainage, other - facial pain left Respiratory: Present: See HPI, shortness of breath Cardiology: Present: palpitations. Absent: chest pain Gastrointestinal/Abdominal: Present: nausea, diarrhea, abdominal pain Genitourinary: Absent: frequency, dysuria Musculoskeletal: Present: muscle pain Skin: Absent: rash, change in color Neurological: Absent: headache, dizziness/light-headedness Endocrine: Absent: excessive sweating Hematologic/Lymphatic: Absent: easy bruising, easy bleeding Medical History (Last Reviewed 05/15/20 @ 20:55 by Bhupendra Samuel DO) Osteoarthritis of left knee (Chronic) Medial meniscus tear (Chronic) Abdominal pain Onset Date: Unknown Acute insomnia Onset Date: Unknown Anxiety Onset Date: Unknown Back pain Onset Date: Unknown Burn Onset Date: Unknown C. difficile diarrhea Chest pain Onset Date: Unknown Chickenpox Onset Date: Unknown Chronic pain Onset Date: Unknown Dehydration Onset Date: Unknown Depression Onset Date: Unknown Diverticulitis Onset Date: Unknown Fatigue Onset Date: Unknown GERD (gastroesophageal reflux disease) Onset Date: Unknown Hand pain, right Onset Date: ~2017 Headache Onset Date: Unknown Hypertension Onset Date: Unknown Orchalgia Onset Date: Unknown Palpitations Onset Date: Unknown Rectal bleeding Onset Date: Unknown Sleep apnea Onset Date: Unknown Tachycardia Onset Date: Unknown Testicular pain Onset Date: Unknown Thrush, oral Onset Date: Unknown Surgical History: Surgical History (Last Reviewed 05/15/20 @ 20:55 by Bhupendra Samuel DO) Hx of skin graft (Acute) Onset Date: Unknown History of tonsillectomy (Acute) Onset Date: Unknown Hx of fusion of cervical spine (Acute) Onset Date: Unknown Hx of appendectomy (Acute) Onset Date: ~10/03/01 right tendon repair (Acute) Onset Date: Unknown H/O arthroscopy of knee Onset Date: ~01/13/19 Left knee arthroscopy with partial medial meniscectomy, chondroplasty of femoral trochlea Dr. Breen H/O colonoscopy Onset Date: ~2014-' no polyps, mucosa negative. '15 tubular adenoma. Recheck 3-6 mos.04/09/11, [id number] H/O foot surgery Onset Date: Unknown History of bladder surgery Onset Date: ~01/29/20 Procedure: Cystoscopy, hydrodistention of bladder, bladder biopsy with fulguration History of esophagogastroduodenoscopy (EGD) Onset Date: ~2014 Bagan- jay-test negative, stool culture negative, c.diff,A&B negative. clotest neg. 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 History of orchiectomy Onset Date: ~01/22/13 radical orchiectomy - Dr Tyler S/P epidural steroid injection Onset Date: ~04/2018 S1 fistulotimy Onset Date: ~02/24/13 Dr Herrera - anal fistula spermatic cord denervation Onset Date: ~07/10/12 varicocele surgery Onset Date: ~2012 Dr Garcia-microsurgical right varicocelectomy and spermatic cord denervation Family History: Family History (Last Reviewed 05/15/20 @ 20:55 by Bhupendra Samuel DO) Mother Hypertension Father Medical history unknown Sister Alive and well p/t reports sister has one kidney Son Alive and well Daughter Alive and well Daughter Alive and well Daughter Alive and well Social History: (Last Reviewed 05/15/20 @ 20:55 by Bhupendra Samuel DO) Social History: Marital status: Single household members: family current occupational status: employed current occupation: [employer] Highest level of school completed/degree received: high school graduate Service: No Tobacco: Smoking Status: Never smoker tobacco type: cigars Alcohol: alcohol intake: current alcohol intake frequency: holiday/special occasion Substance Use: substance use type: does not use Dietary Habits: caffeine: Yes Type: coffee Physical Exam - Physical Exam General Appearance: Present: wd/wn, alert, no apparent distress Head Exam: Present: normal inspection, no evidence of injury Ears, Nose, Throat: Present: nasal congestion, sinus pain/drainage - With m oderate erythema. Absent: tonsillar exudate Neck: Present: normal inspection, nontender, supple Respiratory: Present: no respiratory distress - But moderate tachypnea, lungs clear Cardiovascular/Chest: Present: no murmur, tachycardia Gastrointestinal/Abdominal: Present: normal bowel sounds, nondistended, soft, tenderness - Diffuse throughout Back Exam: Present: normal inspection, normal range of motion, no vertebral tenderness Extremity Exam: Present: normal inspection, normal range of motion, no edema Neurological Exam: Present: alert, oriented, normal mood/affect Skin Exam: Present: normal color, warm/dry Lymphatic Exam: Present: no adenopathy Progress - Results and Orders Patient's Lab Results:: I have reviewed the patient's lab results. Results and Orders: Laboratory Tests 05/15/20 05/15/20 05/15/20 20:50 20:50 20:50 WBC 11.0 H Hgb 14.8 Hct 41.8 L Plt Count 192 Neutrophils % 82.9 H D-Dimer 0.21 Sodium 134 Potassium 3.5 Chloride 100 Carbon Dioxide 22.0 L Anion Gap 15.5 H BUN 10 Creatinine 0.96 Random Glucose 164 H Calcium 9.3 Total Bilirubin 0.4 AST 29 ALT 47 Alkaline Phosphatase 82 Troponin I Less than 0.017 B-Natriuretic Peptide 102 - Vital Signs Patient's Vital Signs:: I have reviewed the patient's vital signs. Vital Signs: Vital Signs 05/15/20 20:27 Temperature 39.9 C H Pulse Rate 134 H Respiratory Rate 28 H Blood Pressure 124/64 O2 Sat by Pulse Oximetry 95 - EKG EKG #1 EKG: supraventricular tachycardia, nonspecific ST T wave changes EKG read: Interp. by me - X-Ray X-Ray #1 X-Ray: chest Interpretation: Interp. by me X-ray Comments: Scattered atypical infiltrates more left than right. Cardiac silhouette is m ildly enlarged probably due to AP projection. No pneumothorax. Bony elements appear intact. - Progress/Reassessment Chief Complaint: Dyspnea Progress Note-Subjective: 05/15/20 21:[address] Lindquist she agrees with admission and suggested remdesivir 05/15/20 23:20 Patient's oxygen saturations tended to decline while he was in the ER and by the time we were transferring him to the MedSur unit he was getting down to 90% so I added 1 to 2 L of oxygen as needed Departure Clinical Impression: Pneumonia due to COVID-19 virus - Departure Disposition: Still a patient Condition: Fair
[2020-05-15] MEDS ORDERED: KETOROLAC TROMETHAMINE 30 MG/ML VIAL IV ONE (21:02)
[2020-05-15 21:05] LABS: Hematocrit 41.8 % (42.0-52.0); Hemoglobin 14.8 gm/dL (13.5-18.0); Mean Cell Volume 91.1 fl (78-100); Mean Corpuscular Hemoglobin 32.2 pg (27-31); Mean Corpuscular Hgb Conc 35.4 g/dl (32-36); Neutrophil # 9.1 K/mm3 (1.3-6.0); Neutrophil % 82.9 % (42-75.0); Platelet Count 192 K/mm3 (150-450); Red Blood Count 4.59 M/mm3 (4.7-6.0); Red Cell Distribution Width 11.8 % (11.5-14.0)
[2020-05-15] MEDS ORDERED: NORMAL SALINE 1,000 ML IV ONE (21:15)
[2020-05-15 21:22] LABS: Troponin I Less than 0.017 ng/mL (0.00-0.10)
[2020-05-15 21:25] LABS: ALT 47 U/L (19-67); Albumin * 2.6 gm/dl (3.4-5.0); Alkaline Phosphatase * 82 U/L (50-170); Anion Gap 15.5 mmol/L (6.8-13.8); BNP * 102 pg/mL (5-140); BUN/Creatinine Ratio 10.4 (9.0-21.6); Bilirubin, Total 0.4 mg/dL (0.0-1.1); Blood Urea Nitrogen 10 mg/dL (6-23); Ca. Corrected For Albumin 10.1 mg/dL (8.4-10.2); Calcium * 9.3 mg/dL (7.9-10.9); Chloride 100 mmol/L (97-106); Glucose * 164 mg/dL (70-110); Potassium 3.5 mmol/L (3.4-4.6); Sodium 134 mmol/L (132-142); Total Protein 7.9 gm/dL (6.2-8.2)
[2020-05-15 21:36] LABS: AST 29 U/L (0-48)
[2020-05-15] MEDS ORDERED: REMDESIVIR 200 MG in NORMAL SALINE 210 ML IV ONE (22:17)
[2020-05-16] MEDS: ACETAMINOPHEN 325 MG TABLET PO PRN ×3 (00:36→20:55)
[2020-05-16] MEDS ORDERED: ALBUTEROL SULFATE 200 PUFF INHALER IH PRN (07:18)
[2020-05-16] MEDS ORDERED: CYCLOBENZAPRINE HCL 10 MG TABLET PO PRN (07:18)
[2020-05-16] MEDS ORDERED: hydrOXYzine PAMOATE 25 MG CAPSULE PO PRN (07:18)
[2020-05-16 07:21] LABS: BUN/Creatinine Ratio 16.2 (9.0-21.6); Carbon Dioxide 23.6 mmol/L (24-32.6); Potassium 3.6 mmol/L (3.4-4.6)
[2020-05-16 07:22] LABS: Albumin * 2.2 gm/dl (3.4-5.0); Bilirubin, Total 0.3 mg/dL (0.0-1.1); Ca. Corrected For Albumin 9.6 mg/dL (8.4-10.2); Calcium * 8.5 mg/dL (7.9-10.9); Total Protein 7.1 gm/dL (6.2-8.2)
[2020-05-16] MEDS: ENOXAPARIN SODIUM 40 MG/0.4 ML SYRG SC SCH (08:02)
[2020-05-16] MEDS ORDERED: DEXAMETHASONE SODIUM PHOSP/PF 10 MG/ML VIAL IV ONE (09:00)
--- NOTE | 2020-05-16 09:31 | HP ---
Chief Complaint - Chief Complaint Date of Service: 05/16/20 Time of Service: 09:20 Chief Complaint: shortness of breath History of Present Illness: Started having body aches and fever 3-4 days before anatoliy. Was tested for covid [place] morning, and was positive. felt better after a few days, then called my office May 12, saying he had worsened, again with fevers and SOB. Was started on azithromycin, cefdinir, dexamethasone, and an inhaler. the inhaler was helpful, but he couldn't walk very far, and felt like he was more dependent on it than he should have been. Couldn't walk across a room and came to the ED last night. He was tachypneic, and tachycardic, and started on oxygen, which helped. Oxygen was in the low 80's in the ED and he was started on oxygen, which helps him quite a bit. His chest isn't as heavy with the oxygen. Medical History (Last Reviewed 05/15/20 @ 23:38 by Vianey Tran RN) Osteoarthritis of left knee (Chronic) Medial meniscus tear (Chronic) Abdominal pain Onset Date: Unknown Acute insomnia Onset Date: Unknown Anxiety Onset Date: Unknown Back pain Onset Date: Unknown Burn Onset Date: Unknown C. difficile diarrhea Chest pain Onset Date: Unknown Chickenpox Onset Date: Unknown Chronic pain Onset Date: Unknown Dehydration Onset Date: Unknown Depression Onset Date: Unknown Diverticulitis Onset Date: Unknown Fatigue Onset Date: Unknown GERD (gastroesophageal reflux disease) Onset Date: Unknown Hand pain, right Onset Date: ~2017 Headache Onset Date: Unknown Hypertension Onset Date: Unknown Orchalgia Onset Date: Unknown Palpitations Onset Date: Unknown Rectal bleeding Onset Date: Unknown Sleep apnea Onset Date: Unknown Tachycardia Onset Date: Unknown Testicular pain Onset Date: Unknown Thrush, oral Onset Date: Unknown Surgical History: Surgical History (Last Reviewed 05/15/20 @ 23:38 by Vianey Tran RN) Hx of skin graft (Acute) Onset Date: Unknown History of tonsillectomy (Acute) Onset Date: Unknown Hx of fusion of cervical spine (Acute) Onset Date: Unknown Hx of appendectomy (Acute) Onset Date: ~10/03/01 prosper right tendon repair (Acute) Onset Date: Unknown H/O arthroscopy of knee Onset Date: ~01/13/19 Left knee arthroscopy with partial medial meniscectomy, chondroplasty of femoral trochlea Dr. Breen H/O colonoscopy Onset Date: ~2014 no polyps, mucosa negative. tubular adenoma. Recheck 3-6 mos.04/09/11, [id number] H/O foot surgery Onset Date: Unknown History of bladder surgery Onset Date: ~01/29/20 Procedure: Cystoscopy, hydrodistention of bladder, bladder biopsy with fulguration History of esophagogastroduodenoscopy (EGD) Onset Date: ~2014 jay-test negative, stool culture negative, c.diff,A&B negative. clotest neg. 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 History of orchiectomy Onset Date: ~01/22/13 radical orchiectomy - Dr Tyler S/P epidural steroid injection Onset Date: ~04/2018 S1 fistulotimy Onset Date: ~02/24/13 Dr Herrera - anal fistula spermatic cord denervation Onset Date: ~07/10/12 varicocele surgery Onset Date: ~2012 Dr Garcia-microsurgical right varicocelectomy and spermatic cord denervation Family History: Family History (Last Reviewed 05/15/20 @ 23:38 by Vianey Tran RN) Mother Hypertension Father Medical history unknown Sister Alive and well p/t reports sister has one kidney Son Alive and well Daughter Alive and well Daughter Alive and well Daughter Alive and well Social History: (Last Reviewed 05/15/20 @ 23:38 by Vianey Tran RN) Social History: Marital status: Single household members: family current occupational status: employed current occupation: [employer] Highest level of school completed/degree received: high school graduate Service: No Tobacco: Smoking Status: Never smoker tobacco type: cigars Alcohol: alcohol intake: current alcohol intake frequency: holiday/special occasion Substance Use: substance use type: does not use Dietary Habits: caffeine: Yes Type: coffee Review Of Systems (GEN) - Review of Systems Generalized/Overall Review: Present: Fever Respiratory: Present: Cough, Shortness of Breath Cardiac: Present: Chest Pain Abdominal: Present: No Symptoms Reported Genitourinary: Present: No Symptoms Reported Musculoskeletal: Present: Joint Pain, Back Pain Neurological: Present: Headache Skin: Present: No Symptoms Reported Immunizations: IMMUNIZATION HX Immunizations Up to Date Yes History of Influenza Vaccine No Hx Pneumococcal Vaccination No Allergies/Adverse Reactions: Allergies Allergy/AdvReac Type Severity Reaction Status Date / Time morphine AdvReac Severe Anaphylaxis Verified 05/15/20 20:34 Home Medications: HOME MEDICATIONS Lisinopril [Zestril] 40 mg PO HS 10/11/17 [Last Taken 01/13/19] Metoprolol Succinate [Toprol Xl] 100 mg PO HS 10/11/17 [Last Taken 01/13/19] cyclobenzaprine 10 mg tablet 10 mg PO TID PRN #60 tab 02/10/20 [Last Taken Unknown] diclofenac sodium 75 mg tablet,delayed release 75 mg PO BID 02/10/20 [Last Taken Unknown] tizanidine 4 mg capsule 4 mg PO TID PRN #60 cap 02/10/20 [Last Taken Unknown] hydroxyzine pamoate 25 mg capsule 25 mg PO QID PRN #60 cap 02/22/20 [Last Taken Unknown] albuterol sulfate 90 mcg/actuation aerosol inhaler 1 inh IH QID PRN #6.7 g 05/12/20 [Last Taken Unknown] azithromycin 250 mg tablet See Rx Instructions PO .COMPLEX #6 tab 05/12/20 [Last Taken Unknown] cefdinir 300 mg capsule 300 mg PO BID #10 cap 05/12/20 [Last Taken Unknown] dexamethasone 6 mg tablet 6 mg PO DAILY #10 tab 05/12/20 [Last Taken Unknown] Exam - Exam Vital Signs: Vital Signs - Last Taken Temp 36.5 C 05/16/20 06:47 Pulse 95 05/16/20 06:47 Resp 10 L 05/16/20 06:47 BP 121/79 05/16/20 06:47 Pulse Ox 99 05/16/20 06:47 Constitutional: Present: Alert, Cooperative, No distress, Obese Respiratory: Present: lungs clear, normal breath sounds, other - dry cough Cardiovascular/Chest: Present: tachycardia - HR 105 Abdomen: Present: soft Extremity: Absent: lower extremity edema Neurologic: Present: normal mood/affect Eye contact: Present: cooperative, good eye contact Diagnostic Studies: Abnormal Lab Results 05/15/20 05/15/20 05/16/20 Range/Units 20:50 20:50 06:51 WBC 11.0 H (4.0-10.5) K/mm3 RBC 4.59 L (4.7-6.0) M/mm3 Hct 41.8 L (42.0-52.0) % MCH 32.2 H (27-31) pg Immature Gran % (Auto) 0.50 H (0.001-0.429) % Immature Gran # (Auto) 0.06 H (0.000-0.0310) K/mm3 Neutrophils % 82.9 H (42-75.0) % Lymphocytes % 9.8 L (20-51) % Neutrophils # 9.1 H (1.3-6.0) K/mm3 Lymphocytes # 1.08 L (1.5-3.5) k/mm3 Carbon Dioxide 22.0 L 23.6 L (24-32.6) mmol/L Anion Gap 15.5 H (6.8-13.8) mmol/L Est GFR (Non-Af Amer) 131 H D (60-130) mL/min Random Glucose 164 H 123 H (70-110) mg/dL Albumin 2.6 L 2.2 L (3.4-5.0) gm/dl Laboratory Results WBC 11.0 K/mm3 (4.0-10.5) H 05/15/20 20:50 RBC 4.59 M/mm3 (4.7-6.0) L 05/15/20 20:50 Hgb 14.8 gm/dL (13.5-18.0) 05/15/20 20:50 Hct 41.8 % (42.0-52.0) L 05/15/20 20:50 MCV 91.1 fl (78-100) 05/15/20 20:50 MCH 32.2 pg (27-31) H 05/15/20 20:50 MCHC 35.4 g/dl (32-36) 05/15/20 20:50 RDW 11.8 % (11.5-14.0) 05/15/20 20:50 Plt Count 192 K/mm3 (150-450) 05/15/20 20:50 MPV 10.0 fl (8-11.3) 05/15/20 20:50 Immature Gran % (Auto) 0.50 % (0.001-0.429) H 05/15/20 20:50 Immature Gran # (Auto) 0.06 K/mm3 (0.000-0.0310) H 05/15/20 20:50 Neutrophils % 82.9 % (42-75.0) H 05/15/20 20:50 Lymphocytes % 9.8 % (20-51) L 05/15/20 20:50 Monocytes % 6.6 % (0.0-9) 05/15/20 20:50 Eosinophils % 0.0 % (0.0-3.0) 05/15/20 20:50 Basophils % 0.2 % (0.0-1.0) 05/15/20 20:50 Nucleated RBC % 0.0 k/mm3 (0-1) 05/15/20 20:50 Neutrophils # 9.1 K/mm3 (1.3-6.0) H 05/15/20 20:50 Lymphocytes # 1.08 k/mm3 (1.5-3.5) L 05/15/20 20:50 Monocytes # 0.7 k/mm3 (0.0-1.0) 05/15/20 20:50 Eosinophils # 0.0 k/mm3 (0.0-0.7) 05/15/20 20:50 Absolute Basophils 0.0 k/mm3 (0.0-0.1) 05/15/20 20:50 D-Dimer 0.21 ug/mL (0.19-0.49) 05/15/20 20:50 Sodium 137 mmol/L (132-142) 05/16/20 06:51 Plasma Sodium 137 mmol/L (130-142) 05/16/20 06:51 Potassium 3.6 mmol/L (3.4-4.6) 05/16/20 06:51 Chloride 105 mmol/L (97-106) 05/16/20 06:51 Carbon Dioxide 23.6 mmol/L (24-32.6) L 05/16/20 06:51 Anion Gap 12.0 mmol/L (6.8-13.8) 05/16/20 06:51 BUN 11 mg/dL (6-23) 05/16/20 06:51 Creatinine 0.68 mg/dL (0.4-1.4) 05/16/20 06:51 Est GFR (Non-Af Amer) 131 mL/min (60-130) H D 05/16/20 06:51 BUN/Creatinine Ratio 16.2 (9.0-21.6) 05/16/20 06:51 Random Glucose 123 mg/dL (70-110) H 05/16/20 06:51 Calcium 8.5 mg/dL (7.9-10.9) 05/16/20 06:51 Calcium Adj for Albumin 9.6 mg/dL (8.4-10.2) 05/16/20 06:51 Total Bilirubin 0.3 mg/dL (0.0-1.1) 05/16/20 06:51 AST 30 U/L (0-48) 05/16/20 06:51 ALT 39 U/L (19-67) 05/16/20 06:51 Alkaline Phosphatase 69 U/L (50-170) 05/16/20 06:51 Troponin I Less than 0.017 ng/mL (0.00-0.10) 05/15/20 20:50 B-Natriuretic Peptide 102 pg/mL (5-140) 05/15/20 20:50 Total Protein 7.1 gm/dL (6.2-8.2) 05/16/20 06:51 Albumin 2.2 gm/dl (3.4-5.0) L 05/16/20 06:51 Assessment/Plan - Narrative Narrative: Continue 6 mg decadron daily, lovenox, remdesivir, and will give rocephin while hospitalized. feels better with oxygen, and his oxygen requirement is minimal at 1L. pulse ox was 99% during my exam. Anticipate DC in 24-48 hours. He recently saw pain management, who recommended a decrease of his prescribed vicodin, from 6 tablets daily to 4 tablets daily. This medication is not included on his med list. He is complaining of headache, and can restart his recently prescribed medication. - Assessment/Plan (1) COVID-19 Assessment: remdesivir Problem: Acute (2) Pneumonia due to COVID-19 virus Problem: Acute (3) Osteoarthritis of left knee Problem: Chronic Qualifiers: Osteoarthritis type: unspecified Qualified Code(s): M17.12 - Unilateral primary osteoarthritis, left knee (4) Neck pain Problem: Acute (5) Hypertension Problem: Chronic Qualifiers: Hypertension type: essential hypertension Qualified Code(s): I10 - Essential (primary) hypertension (6) Chronic pain Problem: Acute Qualifiers: Chronic pain type: other chronic pain Qualified Code(s): G89.29 - Other chronic pain (7) GERD (gastroesophageal reflux disease) Problem: Chronic
[2020-05-16] MEDS: HYDROcodone/ACETAMINOPHEN 1 EACH TABLET PO PRN (16:20)
[2020-05-16] MEDS ORDERED: guaiFENesin 100 MG/5 ML SYRUP PO PRN (19:42)
[2020-05-16] MEDS ORDERED: METOPROLOL SUCCINATE 100 MG TABLET.SA PO SCH (21:00)
[2020-05-16] MEDS ORDERED: LISINOPRIL 40 MG TABLET PO SCH (21:00)
[2020-05-16] MEDS ORDERED: REMDESIVIR 100 MG in NORMAL SALINE 230 ML IV SCH (21:00)
[2020-05-17] MEDS: HYDROcodone/ACETAMINOPHEN 1 EACH TABLET PO PRN (00:52)
[2020-05-17 06:58] LABS: Albumin * 2.2 gm/dl (3.4-5.0); Anion Gap 10.4 mmol/L (6.8-13.8); BUN/Creatinine Ratio 18.2 (9.0-21.6); Bilirubin, Total 0.3 mg/dL (0.0-1.1); Ca. Corrected For Albumin 10.3 mg/dL (8.4-10.2); Calcium * 9.2 mg/dL (7.9-10.9); Carbon Dioxide 25.7 mmol/L (24-32.6); Potassium 4.1 mmol/L (3.4-4.6); Total Protein 7.4 gm/dL (6.2-8.2)
[2020-05-17] MEDS: ENOXAPARIN SODIUM 40 MG/0.4 ML SYRG SC SCH (08:20)
--- NOTE | 2020-05-17 10:14 | DS ---
(1) COVID-19 Problem: Acute (2) Pneumonia due to COVID-19 virus Problem: Acute (3) Osteoarthritis of left knee Problem: Chronic Qualifiers: Osteoarthritis type: unspecified Qualified Code(s): M17.12 - Unilateral primary osteoarthritis, left knee (4) Neck pain Problem: Acute (5) Hypertension Problem: Chronic Qualifiers: Hypertension type: essential hypertension Qualified Code(s): I10 - Essential (primary) hypertension (6) Chronic pain Problem: Chronic Qualifiers: Chronic pain type: other chronic pain Qualified Code(s): G89.29 - Other chronic pain (7) GERD (gastroesophageal reflux disease) Problem: Chronic (8) Respiratory failure with hypoxia Problem: Resolved Date of Discharge:: 05/17/20 Hospital Course: Started having body aches and fever 3-4 days before anatoliy. Was tested for covid [place] morning, and was positive. felt better after a few days, then called my office May 12, saying he had worsened, again with fevers and SOB. Was started on azithromycin, cefdinir, dexamethasone, and an inhaler. the inhaler was helpful, but he couldn't walk very far, and felt like he was more dependent on it than he should have been. Couldn't walk across a room and came to the ED on 05/15. He was tachypneic, and tachycardic, and started on oxygen, which helped. Oxygen was in the low 80's in the ED and he was started on oxygen, which helps him quite a bit. His chest isn't as heavy with the oxygen. He was given remdesivir daily while here, so he received 2 doses. He was able to wean from the oxygen overnight on 05/16, and felt comfortable going home on 05/17. He will finish the decadron and cefdinir scripts from last week, and will also send guaifenesin to help with cough. Procedures Performed: none Results and Findings: Lab Pending Results 05/15/20 20:50: WBC 11.0 H, RBC 4.59 L, Hgb 14.8, Hct 41.8 L, MCV 91.1, MCH 32.2 H, MCHC 35.4, RDW 11.8, Plt Count 192, MPV 10.0, Immature Gran % (Auto) 0.50 H, Immature Gran # (Auto) 0.06 H, Neutrophils % 82.9 H, Lymphocytes % 9.8 L, Monocytes % 6.6, Eosinophils % 0.0, Basophils % 0.2, Nucleated RBC % 0.0, Neutrophils # 9.1 H, Lymphocytes # 1.08 L, Monocytes # 0.7, Eosinophils # 0.0, Absolute Basophils 0.0 05/15/20 20:50: Sodium 134, Plasma Sodium 135, Potassium 3.5, Chloride 100, Carbon Dioxide 22.0 L, Anion Gap 15.5 H, BUN 10, Creatinine 0.96, Est GFR (Non- Af Amer) 88, BUN/Creatinine Ratio 10.4, Random Glucose 164 H, Calcium 9.3, Calcium Adj for Albumin 10.1, Total Bilirubin 0.4, AST 29, ALT 47, Alkaline Phosphatase 82, Troponin I Less than 0.017, B-Natriuretic Peptide 102, Total Protein 7.9, Albumin 2.6 L 05/15/20 20:50: D-Dimer 0.21 05/16/20 06:51: Sodium 137, Plasma Sodium 137, Potassium 3.6, Chloride 105, Carbon Dioxide 23.6 L, Anion Gap 12.0, BUN 11, Creatinine 0.68, Est GFR (Non-Af Amer) 131 H D, BUN/Creatinine Ratio 16.2, Random Glucose 123 H, Calcium 8.5, Calcium Adj for Albumin 9.6, Total Bilirubin 0.3, AST 30, ALT 39, Alkaline Phosphatase 69, Total Protein 7.1, Albumin 2.2 L 05/17/20 06:30: Sodium 134, Plasma Sodium 136, Potassium 4.1, Chloride 102, Carbon Dioxide 25.7, Anion Gap 10.4, BUN 12, Creatinine 0.66, Est GFR (Non-Af Amer) 136 H, BUN/Creatinine Ratio 18.2, Random Glucose 197 H D, Calcium 9.2, Calcium Adj for Albumin 10.3 H, Total Bilirubin 0.3, AST 20, ALT 35, Alkaline Phosphatase 60, Total Protein 7.4, Albumin 2.2 L Discharge Location: Home Disposition: Home self-care Condition: Fair Discharge Activity: Activity as tolerated Discharge Diet: General/regular food Referrals: Suzanne Lindquist DO [Primary Care Provider] - 05/19/20 Additional Patient Instructions (free text): Please schedule video visit with me on or Saturday this week. Prescriptions (Any new or edited meds): guaiFENesin [Robitussin] 200 mg PO Q4H PRN #1 bottle PRN Reason: Cough Transmission Status: Pending to [facility] Complete Home Medications List: Complete Home Medication List: Lisinopril [Zestril] 40 mg PO HS 10/11/17 Metoprolol Succinate [Toprol Xl] 100 mg PO HS 10/11/17 cyclobenzaprine 10 mg tablet 10 mg PO TID PRN #60 tab 02/10/20 diclofenac sodium 75 mg tablet,delayed release 75 mg PO BID 02/10/20 tizanidine 4 mg capsule 4 mg PO TID PRN #60 cap 02/10/20 hydroxyzine pamoate 25 mg capsule 25 mg PO QID PRN #60 cap 02/22/20 albuterol sulfate 90 mcg/actuation aerosol inhaler 1 inh IH QID PRN #6.7 g 05/12/20 azithromycin 250 mg tablet See Rx Instructions PO .COMPLEX #6 tab 05/12/20 cefdinir 300 mg capsule 300 mg PO BID #10 cap 05/12/20 dexamethasone 6 mg tablet 6 mg PO DAILY #10 tab 05/12/20 HYDROcodone/ACETAMINOPHEN [Hydrocodone-Acetamin 5-325 mg] 2 tab PO Q8H PRN 05/16/20 guaiFENesin [Robitussin] 200 mg PO Q4H PRN #1 bottle 05/17/20
[2020-05-17 12:19] VITALS: BP 121/69
== END 2020-05-17 13:10 | disposition home or self-care (01) | DRG 177 ==
LOC: ER 20:18 → MS 22:06
PROVIDERS: ADMIT Family Medicine; ATTEND Family Medicine